=== PATIENT | female | born 1990 | race Caucasian/White ===

== ENCOUNTER 2018-03-24 10:16 | Inpatient (IN) | payer MEDICAID, OTHER ==
[2018-03-24 10:26] VITALS: BMI 18.8
[2018-03-24] MEDS ORDERED: Sodium Chloride 0.9% 1,000 ML IV STA ×3 (10:42→14:07)
[2018-03-24] MEDS ORDERED: Famotidine 20mg/50ml 20 MG/50 ML BAG IVPB ONE ×2 (11:00→11:35)
[2018-03-24 11:03] LABS: VENOUS BLOOD GAS BASE EXCESS -9.4 mmol/L (0.0-2.0); VENOUS BLOOD GAS PCO2 31 mmHg (40-60); VENOUS BLOOD GAS PO2 26 mm/Hg (30-55); VENOUS BLOOD PH 7.31 (7.32-7.43)
[2018-03-24 11:08] LABS: BASO # 0.1 K/uL (0.0-0.2); BASO % 0.3 % (0.0-2.0); HEMOGLOBIN 13.2 g/dL (12.0-16.0); LYMPH # 1.2 K/uL (1.0-4.3); LYMPH % 7.3 % (20.0-40.0); MEAN CELL VOLUME 91.1 fl (81.0-99.0); MEAN CORPUSCULAR HEMOGLOBIN 30.2 pg (27.0-31.0); MEAN CORPUSCULAR HGB CONC 33.2 g/dL (33.0-37.0); MONO # 0.4 K/uL (0.0-0.8); MONO % 2.6 % (0.0-10.0); NEUT # 15.1 K/uL (1.8-7.0); NEUT % 89.8 % (50.0-75.0); PLATELET COUNT 374 K/uL (130-400); RBC 4.36 Mil/uL (3.80-5.20); RED CELL DISTRIBUTION WIDTH 13.3 % (11.5-14.5); WHITE BLOOD COUNT 16.8 K/uL (4.8-10.8)
--- NOTE | 2018-03-24 11:08 | ED PDOC ---
HPI: Abdomen Time Seen by Provider: 03/24/18 10:30 Chief Complaint (Nursing): GI Problem Chief Complaint (Provider): vomiting History Per: Patient (27 y/o female Insulin dependent diabetic with intermittent vomiting x 2 weeks. Notes abdominal pain moderate. Denies any fevers/chills/dysuria. Has been admitted to [facility] x 1 week and has had 3 additional ED visits. Takes novolog at home.) Past Medical History Reviewed: Historical Data, Nursing Documentation, Vital Signs Vital Signs: Last Vital Signs Temp 98.6 F 03/24/18 10:24 Pulse 83 03/24/18 14:03 Resp 17 03/24/18 14:03 BP 135/77 03/24/18 14:03 Pulse Ox 99 03/24/18 14:03 - Medical History PMH: Diabetes (type I), Hypercholesterolemia, Hyperlipidemia Denies: Chronic Kidney Disease - Family History Family History: States: Unknown Family Hx - Home Medications Home Medications: Ambulatory Orders Medication Instructions Recorded Insulin Aspart [Novolog] 10 unit SQ DAILY 12/16/15 - Allergies Allergies/Adverse Reactions: Allergies Allergy/AdvReac Type Severity Reaction Status Date / Time No Known Allergies Allergy Verified 03/24/18 10:30 Review of Systems ROS Statement: Except As Marked, All Systems Reviewed And Found Negative Physical Exam - Reviewed Nursing Documentation Reviewed: Yes Vital Signs Reviewed: Yes - Physical Exam Appears: Positive for: Well, Non-toxic, No Acute Distress Head Exam: Positive for: ATRAUMATIC, NORMAL INSPECTION, NORMOCEPHALIC Skin: Positive for: Normal Color, Warm, DRY Eye Exam: Positive for: EOMI, Normal appearance, PERRL ENT: Positive for: Normal ENT Inspection Neck: Positive for: Normal, Painless ROM Cardiovascular/Chest: Positive for: Regular Rate, Rhythm Respiratory: Positive for: CNT, Normal Breath Sounds Gastrointestinal/Abdominal: Positive for: Normal Exam, Soft, Tenderness ( epigastric tenderness) Back: Positive for: Normal Inspection Extremity: Positive for: Normal ROM Neurologic/Psych: Positive for: Alert, Oriented - Laboratory Results Result Diagrams: 03/24/18 10:50 03/24/18 10:50 - ECG O2 Sat by Pulse Oximetry: 100 - Progress ED Course And Treament: NS 2 liters wide open EKG:NSR 95bpm; no ectopy no acute changes PEPCID 20 MG IV REGLAN 10 MG IV INSULIN DRIP 7 UNITS/HR ORDERED BETA QUANT NOTED ELEVATED. D/W PATIENT. PATIENT STATES SHE DOES NOT WANT INFO DISCLOSED TO MOTHER WHO HAS ACCOMPANIED HER AND DID NOT DISCLOSE INITIALLY. D/W DR. CASTRO. D/W DR. RDZ. Disposition - Clinical Impression Clinical Impression: Hyperemesis, DKA (diabetic ketoacidoses) - Patient ED Disposition Is Patient to be Admitted: Yes - Disposition Disposition Time: 12:59 Condition: FAIR - Pt Status Changed To: Hospital Disposition Of: Inpatient - Admit Certification Admit to Inpatient:: After my assessment, the patient will require hospitalization for at least two midnights. This is because of the severity of symptoms shown, intensity of services needed, and/or the medical risk in this patient being treated as an outpatient.
[2018-03-24 11:23] LABS: ALB/GLOB RATIO 1.2 (1.0-2.1); ALBUMIN 4.6 g/dL (3.5-5.0); ALT/SGPT 10 U/L (9-52); AST/SGOT 15 U/L (14-36); BLOOD UREA NITROGEN 13 mg/dl (7-17); CALCIUM 10.2 mg/dL (8.4-10.2); GFR AFRICAN-AMERICAN > 60; GFR NON-AFRICAN AMERICAN > 60; LIPASE 59 U/L (23-300)
[2018-03-24] MEDS ORDERED: Dextrose 50% SYRINGE Inj (50 ml) IV PRN ×2 (11:27→15:10)
[2018-03-24] MEDS ORDERED: Glucagon Recombinant 1 mg Inj IM PRN ×2 (11:27→15:10)
[2018-03-24 13:15] LABS: BANDS 4 % (0-2); LYMPHOCYTE 7 % (20-50); MONOCYTE 2 % (0-10); NEUTROPHIL 87 % (42-75); PLATELET ESTIMATE NORMAL (NORMAL); TOTAL CELLS COUNTED 100
[2018-03-24] MEDS ORDERED: Sodium Chloride 0.9% 1,000 ML IV SCH (14:00)
--- NOTE | 2018-03-24 14:28 | CP.PCM.CON ---
<Derick Fisher - Last Filed: 03/24/18 15:19> History of Present Illness - History of Present Illness History of Present Illness: Critical care consult note Hx taken from patient, patient;s mother and medical records 27 y/o F with PMHx of IDDM since she was 14 y/o, on NPH and Lispro, presented to ED c/o persistent vomiting and abd pain for 2 weeks. As per mother, patient was admitted about 2 weeks ago to [facility] for 1 week and treated with similar complains. She was DC home with same dose of insulin that patient was using and with a PO medication that they dont recall the name. Patient improved but has had persistent hypersalivation and episodes of vomiting since then and now is complaining of sore throat and epigastric pain. As per mother the patient used to live in [place] until 5-6 M/A when she moved with her because her sugar were not well controlled and the patient has a daughter that is 3 y/a. Denies any other significant PMhx other than 5 y/a patient was admitted to [facility] for "dental abscess" had respiratory distress and had to be intubated, trach done and patient transferred out to [facility] for further ENT management. On ED patient was found to have a venous blood Ph of 7.31, carbon dioxide 14, VS stable, WBC 16 and BHCG >[id number] Patient was started on insulin drip and given 2 L of IV fluids. Review of Systems - Review of Systems All systems: reviewed and no additional remarkable complaints except (Those described on HPI) Past Patient History - Past Medical History & Family History Past Medical History?: Yes - Past Social History Smoking Status: Never Smoked Drugs: Denies - CARDIAC Hx Hypercholesterolemia: Yes - PULMONARY Hx Respiratory Disorders: No - NEUROLOGICAL Hx Neurological Disorder: No - HEENT Hx HEENT Problems: No - RENAL Hx Chronic Kidney Disease: No - ENDOCRINE/METABOLIC Hx Endocrine Disorders: Yes (DM I) - HEMATOLOGICAL/ONCOLOGICAL Hx Blood Disorders: No - INTEGUMENTARY Hx Dermatological Problems: No - MUSCULOSKELETAL/RHEUMATOLOGICAL Hx Musculoskeletal Disorders: No Hx Falls: No - GASTROINTESTINAL Hx Gastrointestinal Disorders: No Hx Vomiting: Yes - PSYCHIATRIC Hx Psychophysiologic Disorder: No Hx Substance Use: No - SURGICAL HISTORY Hx Surgeries: Yes Other/Comment: Tracheostomy - ANESTHESIA Hx Anesthesia: Yes Hx Anesthesia Reactions: No Hx Malignant Hyperthermia: No Meds Allergies/Adverse Reactions: Allergies Allergy/AdvReac Type Severity Reaction Status Date / Time No Known Allergies Allergy Verified 03/24/18 10:30 - Medications Medications: Current Medications Dextrose (Dextrose 50% Inj) 0 ml IV STAT PRN; Protocol PRN Reason: Hypoglycemia Protocol Dextrose (Glutose 15) 0 gm PO ONCE PRN; Protocol PRN Reason: Hypoglycemia Protocol Enoxaparin Sodium (Lovenox) 40 mg SC DAILY DOMENIC PRN Reason: Protocol Glucagon (Glucagen Diagnostic Kit) 0 mg IM STAT PRN; Protocol PRN Reason: Hypoglycemia Protocol Insulin Human Regular 100 (units/ Sodium Chloride) 101 mls @ 7.07 mls/hr IV .[id number] DOMENIC PRN Reason: 7 UNITS/HR Last Admin: 03/24/18 14:03 Dose: 7.07 mls/hr Sodium Chloride (Sodium Chloride 0.9%) 1,000 mls @ 250 mls/hr IV .Q4H DOMENIC Sodium Chloride (Sodium Chloride 0.9%) 1,000 mls @ 500 mls/hr IV .Q2H STA Stop: 03/24/18 16:06 Last Admin: 03/24/18 14:09 Dose: 500 mls/hr Physical Exam - Constitutional Appears: Non-toxic, Confused (Slightly) - Head Exam Head Exam: ATRAUMATIC, NORMAL INSPECTION - Eye Exam Eye Exam: EOMI, PERRL - ENT Exam ENT Exam: Mucous Membranes Dry (Mild) - Neck Exam Neck exam: Positive for: Normal Inspection. Negative for: Lymphadenopathy - Respiratory Exam Respiratory Exam: Clear to Auscultation Bilateral, NORMAL BREATHING PATTERN. absent: Decreased Breath Sounds, Rales, Rhonchi, Wheezes, Respiratory Distress - Cardiovascular Exam Cardiovascular Exam: REGULAR RHYTHM, +S1, +S2. absent: Gallop, Systolic Murmur - GI/Abdominal Exam GI & Abdominal Exam: Normal Bowel Sounds, Soft, Tenderness (Diffuse, mild). absent: Distended, Guarding, Rebound, Rigid - Extremities Exam Extremities exam: Negative for: joint swelling, pedal edema, tenderness - Back Exam Back exam: absent: CVA tenderness (L), CVA tenderness (R) - Neurological Exam Neurological exam: Alert, Altered (Confused), Reflexes Normal - Skin Skin Exam: Normal Color, Warm Results - Vital Signs Recent Vital Signs: Last Vital Signs Temp 98.6 F 03/24/18 10:24 Pulse 83 03/24/18 14:03 Resp 17 03/24/18 14:03 BP 135/77 03/24/18 14:03 Pulse Ox 99 03/24/18 14:03 - Labs Result Diagrams: 03/24/18 10:50 03/24/18 10:50 Labs: Laboratory Results - last 24 hr 03/24/18 03/24/18 03/24/18 10:34 10:50 10:50 WBC 16.8 H RBC 4.36 Hgb 13.2 Hct 39.7 MCV 91.1 MCH 30.2 MCHC 33.2 RDW 13.3 Plt Count 374 MPV 9.0 Neut % (Auto) 89.8 H Lymph % (Auto) 7.3 L [place] % (Auto) 2.6 Eos % (Auto) 0.0 Baso % (Auto) 0.3 Neut # (Auto) 15.1 H Lymph # (Auto) 1.2 [place] # (Auto) 0.4 Eos # (Auto) 0.0 Baso # (Auto) 0.1 Neutrophils % (Manual) 87 H Band Neutrophils % 4 H Lymphocytes % (Manual) 7 L Monocytes % (Manual) 2 Platelet Estimate Normal RBC Morphology Normal pO2 VBG pH VBG pCO2 VBG HCO3 VBG Total CO2 VBG O2 Sat (Calc) VBG Base Excess VBG Potassium Glucose Lactate FiO2 Sodium 138 Potassium 4.4 Chloride 101 Carbon Dioxide 14 L Anion Gap 27 H BUN 13 Creatinine 0.4 L Est GFR ( Amer) > 60 Est GFR (Non-Af Amer) > 60 POC Glucose (mg/dL) 251 H Random Glucose 300 H Calcium 10.2 Magnesium Total Bilirubin 2.0 H AST 15 ALT 10 Alkaline Phosphatase 63 Troponin I Total Protein 8.6 H Albumin 4.6 Globulin 4.0 H Albumin/Globulin Ratio 1.2 Lipase 59 Beta HCG, Quant Venous Blood Potassium 03/24/18 03/24/18 03/24/18 10:54 11:11 13:40 WBC RBC Hgb Hct MCV MCH MCHC RDW Plt Count MPV Neut % (Auto) Lymph % (Auto) [place] % (Auto) Eos % (Auto) Baso % (Auto) Neut # (Auto) Lymph # (Auto) [place] # (Auto) Eos # (Auto) Baso # (Auto) Neutrophils % (Manual) Band Neutrophils % Lymphocytes % (Manual) Monocytes % (Manual) Platelet Estimate RBC Morphology pO2 26 L VBG pH 7.31 L VBG pCO2 31 L VBG HCO3 16.1 VBG Total CO2 16.6 L VBG O2 Sat (Calc) 54.0 VBG Base Excess -9.4 L VBG Potassium 4.1 Glucose 318 H Lactate 1.9 FiO2 21.0 Sodium 135.0 Potassium Chloride 100.0 Carbon Dioxide Anion Gap BUN Creatinine Est GFR ( Amer) Est GFR (Non-Af Amer) POC Glucose (mg/dL) 233 H Random Glucose Calcium Magnesium 1.9 Total Bilirubin AST ALT Alkaline Phosphatase Troponin I < 0.0120 Total Protein Albumin Globulin Albumin/Globulin Ratio Lipase Beta HCG, Quant 066175.00 Venous Blood Potassium 4.1 Assessment & Plan - Assessment and Plan (Free Text) Assessment: 27 y/o F with PMHx of IDDM admitted for suspected DKA and hyperemesis gravidarum DKA Suspected Acute Ph= 7.31, carbon dioxide 14, BS 300, Lactate 1.9, VS stable. BUN/Creat unremarkable Hx of uncontrolled IDDM Last accucheck 233. Switch IV fluids to d5/0.45NS at 175mls/hr Repeat accucheck 15:00 213. C/w Insulin drip at 7 and titrate as per protocol for now. Pending betahydroxybutirate, if negative unlikely DKA and insulin drip can be stopped Repeat BMP at 3pm to monitor K and add KCL as needed Neuro checks q2h Hyperemesis gravidarum BHCG at ED >[id number] Patient dosnt recall LMP with Hx of hyperemesis gravidarum on previous Vomiting for 2 week C/W IV fluids Consider OB consult Supportive measures Leukocytosis R/O infectious process Lactate WNL, Afebrile F/U UA, UCx DVT prophylaxis Recommend SDCs for now <Bonifacio Ayala - Last Filed: 03/24/18 18:12> History of Present Illness - History of Present Illness History of Present Illness: Attestation: Patient seen and examined at the bedside with Resident Dr. Renetta Fisher; and I agree with his outline of plans and management documented below as discussed; reflecting my review of all applicable clinical data, and participation in the care of the patient throughout the day in ICU; today, March 24, 2018. Results - Labs Result Diagrams: 03/24/18 10:50 03/24/18 17:06
[2018-03-24 14:44] LABS: SQUAMOUS EPITHIAL 1 /hpf (0-5); URINE BILIRUBIN NEGATIVE (NEGATIVE); URINE BLOOD NEGATIVE (NEGATIVE); URINE CLARITY CLEAR (Clear); URINE COLOR STRAW (YELLOW); URINE GLUCOSE (UA) >=500 mg/dL (Normal); URINE LEUKOCYTE ESTERASE NEG Leu/uL (Negative); URINE PROTEIN 30 mg/dL (NEGATIVE); URINE UROBILINOGEN 0.2-1.0 mg/dL (0.2-1.0)
--- NOTE | 2018-03-24 15:23 | CP.PCM.HP ---
History of Present Illness - History of Present Illness History of Present Illness: 27 yo female with history of DM1 since 14 yo has been vomiting on and off since 3 weeks ago. Condition was also associated with abdominal pain probably from excessive vomiting. She was admitted at [facility] for one week about 2- 3 weeks ago and sent home with the same dose of insulin. Since then, she has been seen at least 3 times at [facility] ER for the same complaint. She was treated with IV hydration plus insulin then sent home for these visits. Last visit was 2 days ago. Getting no improvement at [facility] patient was brought here by mother with the same complaint. In the ER, serum Beta HCG was [id number]. Patient did not want her mother to know that she is . Present on Admission - Present on Admission Any Indicators Present on Admission: No History of DVT/PE: No History of Uncontrolled Diabetes: No Urinary Catheter: No Decubitus Ulcer Present: No Review of Systems - Review of Systems All systems: reviewed and no additional remarkable complaints except (aside from those mentioned above, 12 point system review were negative by me) Past Patient History - Tetanus Immunizations Tetanus Immunization: Unknown - Past Medical History & Family History Past Medical History?: Yes - Past Social History Smoking Status: Never Smoked Chewing Tobacco Use: No Cigar Use: No Alcohol: None Drugs: Denies - CARDIAC Hx Hypercholesterolemia: Yes - PULMONARY Hx Respiratory Disorders: No - NEUROLOGICAL Hx Neurological Disorder: No - HEENT Hx HEENT Problems: No - RENAL Hx Chronic Kidney Disease: No - ENDOCRINE/METABOLIC Hx Endocrine Disorders: Yes (DM I) - HEMATOLOGICAL/ONCOLOGICAL Hx Blood Disorders: No - INTEGUMENTARY Hx Dermatological Problems: No - MUSCULOSKELETAL/RHEUMATOLOGICAL Hx Musculoskeletal Disorders: No Hx Falls: No - GASTROINTESTINAL Hx Gastrointestinal Disorders: No Hx Vomiting: Yes - PSYCHIATRIC Hx Psychophysiologic Disorder: No Hx Substance Use: No - SURGICAL HISTORY Hx Surgeries: Yes Other/Comment: Tracheostomy - ANESTHESIA Hx Anesthesia: Yes Hx Anesthesia Reactions: No Hx Malignant Hyperthermia: No Meds Allergies/Adverse Reactions: Allergies Allergy/AdvReac Type Severity Reaction Status Date / Time No Known Allergies Allergy Verified 03/24/18 10:30 Physical Exam - Constitutional Appears: No Acute Distress - Head Exam Head Exam: ATRAUMATIC - Eye Exam Eye Exam: absent: Scleral icterus - ENT Exam ENT Exam: Mucous Membranes Moist - Neck Exam Neck exam: Negative for: Meningismus - Respiratory Exam Respiratory Exam: absent: Rales, Rhonchi, Wheezes, Respiratory Distress - Cardiovascular Exam Cardiovascular Exam: REGULAR RHYTHM, +S1, +S2 - GI/Abdominal Exam GI & Abdominal Exam: Soft. absent: Tenderness - Rectal Exam Rectal Exam: Deferred - Extremities Exam Extremities exam: Negative for: calf tenderness, pedal edema - Back Exam Back exam: absent: tenderness - Neurological Exam Neurological exam: Alert, Oriented x3 - Psychiatric Exam Psychiatric exam: Normal Affect - Skin Skin Exam: Dry, Intact Results - Vital Signs Recent Vital Signs: Last Vital Signs Temp 98.6 F 03/24/18 10:24 Pulse 83 03/24/18 14:03 Resp 17 03/24/18 14:03 BP 135/77 03/24/18 14:03 Pulse Ox 99 03/24/18 14:03 - Labs Result Diagrams: 03/24/18 10:50 03/24/18 10:50 Labs: Laboratory Results - last 24 hr 03/24/18 03/24/18 03/24/18 10:34 10:50 10:50 WBC 16.8 H RBC 4.36 Hgb 13.2 Hct 39.7 MCV 91.1 MCH 30.2 MCHC 33.2 RDW 13.3 Plt Count 374 MPV 9.0 Neut % (Auto) 89.8 H Lymph % (Auto) 7.3 L [place] % (Auto) 2.6 Eos % (Auto) 0.0 Baso % (Auto) 0.3 Neut # (Auto) 15.1 H Lymph # (Auto) 1.2 [place] # (Auto) 0.4 Eos # (Auto) 0.0 Baso # (Auto) 0.1 Neutrophils % (Manual) 87 H Band Neutrophils % 4 H Lymphocytes % (Manual) 7 L Monocytes % (Manual) 2 Platelet Estimate Normal RBC Morphology Normal pO2 VBG pH VBG pCO2 VBG HCO3 VBG Total CO2 VBG O2 Sat (Calc) VBG Base Excess VBG Potassium Glucose Lactate FiO2 Sodium 138 Potassium 4.4 Chloride 101 Carbon Dioxide 14 L Anion Gap 27 H BUN 13 Creatinine 0.4 L Est GFR ( Amer) > 60 Est GFR (Non-Af Amer) > 60 POC Glucose (mg/dL) 251 H Random Glucose 300 H Calcium 10.2 Magnesium Total Bilirubin 2.0 H AST 15 ALT 10 Alkaline Phosphatase 63 Troponin I Total Protein 8.6 H Albumin 4.6 Globulin 4.0 H Albumin/Globulin Ratio 1.2 Lipase 59 Beta HCG, Quant Venous Blood Potassium Urine Color Urine Clarity Urine pH Ur Specific [place] Urine Protein Urine Glucose (UA) Urine Ketones Urine Blood Urine Nitrate Urine Bilirubin Urine Urobilinogen Ur Leukocyte Esterase Urine RBC (Auto) Urine Microscopic WBC Ur Squamous Epith Cells 03/24/18 03/24/18 03/24/18 10:54 11:11 13:40 WBC RBC Hgb Hct MCV MCH MCHC RDW Plt Count MPV Neut % (Auto) Lymph % (Auto) [place] % (Auto) Eos % (Auto) Baso % (Auto) Neut # (Auto) Lymph # (Auto) [place] # (Auto) Eos # (Auto) Baso # (Auto) Neutrophils % (Manual) Band Neutrophils % Lymphocytes % (Manual) Monocytes % (Manual) Platelet Estimate RBC Morphology pO2 26 L VBG pH 7.31 L VBG pCO2 31 L VBG HCO3 16.1 VBG Total CO2 16.6 L VBG O2 Sat (Calc) 54.0 VBG Base Excess -9.4 L VBG Potassium 4.1 Glucose 318 H Lactate 1.9 FiO2 21.0 Sodium 135.0 Potassium Chloride 100.0 Carbon Dioxide Anion Gap BUN Creatinine Est GFR ( Amer) Est GFR (Non-Af Amer) POC Glucose (mg/dL) 233 H Random Glucose Calcium Magnesium 1.9 Total Bilirubin AST ALT Alkaline Phosphatase Troponin I < 0.0120 Total Protein Albumin Globulin Albumin/Globulin Ratio Lipase Beta HCG, Quant 129592.00 Venous Blood Potassium 4.1 Urine Color Urine Clarity Urine pH Ur Specific [place] Urine Protein Urine Glucose (UA) Urine Ketones Urine Blood Urine Nitrate Urine Bilirubin Urine Urobilinogen Ur Leukocyte Esterase Urine RBC (Auto) Urine Microscopic WBC Ur Squamous Epith Cells 03/24/18 03/24/18 14:17 15:05 WBC RBC Hgb Hct MCV MCH MCHC RDW Plt Count MPV Neut % (Auto) Lymph % (Auto) [place] % (Auto) Eos % (Auto) Baso % (Auto) Neut # (Auto) Lymph # (Auto) [place] # (Auto) Eos # (Auto) Baso # (Auto) Neutrophils % (Manual) Band Neutrophils % Lymphocytes % (Manual) Monocytes % (Manual) Platelet Estimate RBC Morphology pO2 VBG pH VBG pCO2 VBG HCO3 VBG Total CO2 VBG O2 Sat (Calc) VBG Base Excess VBG Potassium Glucose Lactate FiO2 Sodium Potassium Chloride Carbon Dioxide Anion Gap BUN Creatinine Est GFR ( Amer) Est GFR (Non-Af Amer) POC Glucose (mg/dL) 213 H Random Glucose Calcium Magnesium Total Bilirubin AST ALT Alkaline Phosphatase Troponin I Total Protein Albumin Globulin Albumin/Globulin Ratio Lipase Beta HCG, Quant Venous Blood Potassium Urine Color Straw Urine Clarity Clear Urine pH 6.0 Ur Specific [place] 1.030 Urine Protein 30 Urine Glucose (UA) >=500 Urine Ketones 80 Urine Blood Negative Urine Nitrate Negative Urine Bilirubin Negative Urine Urobilinogen 0.2-1.0 Ur Leukocyte Esterase Neg Urine RBC (Auto) 1 Urine Microscopic WBC 1 Ur Squamous Epith Cells 1 Assessment & Plan - Assessment and Plan (Free Text) Assessment: 27 yo female with history of DM1 since 14 yo has been vomiting on and off since 3 weeks ago. Condition was also associated with abdominal pain probably from excessive vomiting. She was admitted at [facility] for one week about 2- 3 weeks ago and sent home with the same dose of insulin. Since then, she has been seen at least 3 times at [facility] ER for the same complaint. She was treated with IV hydration plus insulin then sent home for these visits. Last visit was 2 days ago. Getting no improvement at [facility] patient was brought here by mother with the same complaint. In the ER, serum Beta HCG was [id number]. Patient did not want her mother to know that she is . 1. DKA admit to ICU continue insulin drip until CO2 is above 18 continue vigorous IV hydration with NSS at 250cc/hr endocrinology consult with Dr Cheung (she is aware) 2. Hyperemesis Gravidarum vomiting probably related to compensation and benefits manager consult with Dr العراقي
[2018-03-24] MEDS: Dextrose 5%/0.45% NS 1,000 ML IV SCH ×2 (17:01→22:58)
[2018-03-24 17:56] LABS: BLOOD UREA NITROGEN 11 mg/dl (7-17); CALCIUM 7.7 mg/dL (8.4-10.2); GFR AFRICAN-AMERICAN > 60; GFR NON-AFRICAN AMERICAN > 60
--- NOTE | 2018-03-24 23:07 | CON ---
ENDOCRINOLOGY CONSULT DATE: LOCATION: In ER holding, transferred now to ICU, room 427. HISTORY OF PRESENT ILLNESS: This is a 27-year-old female with known history of type 1 insulin-dependent diabetes admitted here with intractable nausea, dyspepsia, vomiting, and diffuse abdominal pain and was found to be in diabetic ketoacidosis with concomitant surprise finding of unintentional for which she wants to keep confidential and private at this point in time to hold any information told to her mother. PAST MEDICAL HISTORY: As mentioned above, history of type 1 insulin-dependent diabetes diagnosed since age 14 and has been using only NovoLog insulin at a variable dose two to three times a day. No recent glucose monitoring levels are available at this time. FAMILY HISTORY: Positive for diabetes and hypertension. SOCIAL HISTORY: The patient has a supportive family. No known substance use. REVIEW OF SYSTEMS: As mentioned above. Admits to generalized body weakness with easy fatigability and tiredness and suboptimal energy level. No chest pains or palpitations or PND. Her oral intake has been variable with in fact almost nil oral intake in the last 48 hours because of intractable nausea, dyspepsia, and vomiting episodes. Also admits to upper and lower abdominal pain worse in the last week or so prior to admission. No chest pains, palpitations, or PND. PHYSICAL EXAMINATION: GENERAL: This is an average built female in no apparent distress. VITAL SIGNS: Blood pressure of 140/80, pulse of 70 beats per minute and regular, temperature 98, respirations 20, height is 5 feet 3 inches, and weight is 160 pounds. HEENT: Head is normocephalic. Eyes; anicteric with pink conjunctivae. Funduscopy not possible at this time. Ears, nose, and throat otherwise normal. NECK: Supple. Thyroid gland is normal in size. No carotid bruits or cervical adenopathy. CARDIOPULMONARY: Some adynamic precordium. S1 and S2 is rapid and regular. LUNGS: Clear to auscultation. ABDOMEN: Flat and soft with positive bowel sounds. EXTREMITIES: No peripheral edema. Pulses are +2 bilaterally. LABORATORY DATA: Initial chemistry showed a BUN of 13, sodium 138, potassium 4.4, chloride 101, CO2 of 14, glucose 300, and creatinine 0.4. Her beta hCG is . ASSESSMENT: This is a 27-year-old female with uncontrolled and decompensated type 1 insulin-dependent diabetes presenting here with intractable nausea, dyspepsia, and vomiting and has concomitant incidental finding of positive test and is now being referred for diabetic evaluation and management. PLAN OF MANAGEMENT: We will continue the vigorous IV hydration is the most essential point at this time and continue the intensive insulin infusion with an insulin drip based on the algorithm one DKA protocol as expected to be done. As her oral intake improves and also has acidosis resolves with at least CO2 above 18, then we can switch her over to a more physiologic basal and bolus insulin drug combination as indicated. We will obtain a hemoglobin A1c to confirm her prior glycemic control and baseline thyroid function studies will be ordered. We will obtain serial chemistries and supplement accordingly as needed. We will follow. Vera Cheung MD
--- NOTE | 2018-03-24 23:15 | CP.PCM.CON ---
History of Present Illness - History of Present Illness History of Present Illness: 27 yo F EGA 9.1 wks with pmh of IDDM admitted for DKA and hyperemesis gravidarum. For the past two weeks, she reports epigastric abdominal pain and vomiting. Abdominal pain is localized and intermittent. She denies recent trauma. Vomiting has been NBNB episodes described as spitting up clear mucous. Pt has been taking Reglan and Zofran but has not significantly alleviated her symptoms. Denies recent illness or fevers. She denies: VB, CTX, LOF, FM ROS: Reports: dizziness, slight frontal headaches, nausea and vomiting; Denies: change in vision, CP/SOB, dysuria Of Note: she was recently seen at [place] for similar symptoms. She reports being prescribed a medication (unknown), however, she did not fill the script due to cost. 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 Menstrual cycles are regular, monthly and started at age 14. care: none due to unknown ObHx: 2014 M born at 36 weeks via vaginal delivery: complicated with hyperemesis gravidarum. Rx: Reglan and Zofran. Pmhx: IDDM dx at 14 years of age; Admitted in 2016: dental abscess, which progressed to respiratory distress leading to intubation via trachea at [facility] Famhx: HTN Soc: lives with mom; Denies: smoking, alcohol, illicit drugs Surg: tracheotomy 2016 NKDA Meds: NPH, lispro Physical exam: Gen: AAOx3, lethargy Cardiac: S1S2, no murmurs Respiratory: Clear to auscultation bilaterally Abdomen: soft, nontender, fundus of uterus not palpable CVA: negative for tenderness No calf tenderness 27 yo F EGA 9.1 wks presents with DKA and hyperemesis gravidarum. -US reviewed: EGA 9.1 wks -Consulted Dr. Pantoja: recommended discontinue Reglan and replace with Phenergan or Compazine; Can be treated as routine matter similar to non patients; Management not altered. -SW consulted: personal compliance with self care -Of note: pt repeatedly reported desire to not keep this -Encouraged patient to seek OB care as outpatient in the future to further discuss options -f/u: HBA1C Case d/w Dr. Dulce Maria Hudson MD PGY1 Past Patient History - Tetanus Immunizations Tetanus Immunization: Unknown - Past Medical History & Family History Past Medical History?: Yes - Past Social History Smoking Status: Never Smoked - CARDIAC Hx Cardiac Disorders: Yes Hx Hypercholesterolemia: Yes - PULMONARY Hx Respiratory Disorders: No - NEUROLOGICAL Hx Neurological Disorder: No - HEENT Hx HEENT Problems: No - RENAL Hx Chronic Kidney Disease: No - ENDOCRINE/METABOLIC Hx Endocrine Disorders: Yes Hx Diabetes Mellitus Type 2: Yes - HEMATOLOGICAL/ONCOLOGICAL Hx Blood Disorders: No - INTEGUMENTARY Hx Dermatological Problems: No - MUSCULOSKELETAL/RHEUMATOLOGICAL Hx Musculoskeletal Disorders: No Hx Falls: No - GASTROINTESTINAL Hx Gastrointestinal Disorders: No Hx Vomiting: Yes - PSYCHIATRIC Hx Psychophysiologic Disorder: No Hx Substance Use: No - SURGICAL HISTORY Hx Surgeries: Yes Hx Section: Yes Other/Comment: Tracheostomy. has infected absess in mouth which caused sepsis and intubation - ANESTHESIA Hx Anesthesia: Yes Hx Anesthesia Reactions: No Hx Malignant Hyperthermia: No Meds Allergies/Adverse Reactions: Allergies Allergy/AdvReac Type Severity Reaction Status Date / Time No Known Allergies Allergy Verified 03/24/18 10:30 - Medications Medications: Current Medications Dextrose (Dextrose 50% Inj) 0 ml IV STAT PRN; Protocol PRN Reason: Hypoglycemia Protocol Dextrose (Glutose 15) 0 gm PO ONCE PRN; Protocol PRN Reason: Hypoglycemia Protocol Dextrose (Dextrose 50% Inj) 0 ml IV STAT PRN; Protocol PRN Reason: Hypoglycemia Protocol Dextrose (Glutose 15) 0 gm PO ONCE PRN; Protocol PRN Reason: Hypoglycemia Protocol Enoxaparin Sodium (Lovenox) 40 mg SC DAILY DOMENIC PRN Reason: Protocol Glucagon (Glucagen Diagnostic Kit) 0 mg IM STAT PRN; Protocol PRN Reason: Hypoglycemia Protocol Glucagon (Glucagen Diagnostic Kit) 0 mg IM STAT PRN; Protocol PRN Reason: Hypoglycemia Protocol Dextrose/Sodium Chloride (Dextrose 5%/0.45% Ns 1000 Ml) 1,000 mls @ 175 mls/hr IV .[id number] DOMENIC Stop: 03/25/18 14:46 Last Admin: 03/24/18 17:01 Dose: 175 mls/hr Insulin Human Regular 100 (units/ Sodium Chloride) 101 mls @ 7.07 mls/hr IV .[id number] DOMENIC; 7 UNITS/HR PRN Reason: Protocol Promethazine HCl 25 mg/ Sodium (Chloride) 51 mls @ 102 mls/hr IVPB Q4H DOMENIC Results - Vital Signs Recent Vital Signs: Last Vital Signs Temp 98 F 03/24/18 17:45 Pulse 95 H 03/24/18 19:00 Resp 17 03/24/18 19:00 BP 144/82 03/24/18 18:42 Pulse Ox 100 03/24/18 18:42 - Labs Result Diagrams: 03/24/18 10:50 03/24/18 17:06 Labs: Laboratory Results - last 24 hr 03/24/18 03/24/18 03/24/18 10:34 10:50 10:50 WBC 16.8 H RBC 4.36 Hgb 13.2 Hct 39.7 MCV 91.1 MCH 30.2 MCHC 33.2 RDW 13.3 Plt Count 374 MPV 9.0 Neut % (Auto) 89.8 H Lymph % (Auto) 7.3 L Orange % (Auto) 2.6 Eos % (Auto) 0.0 Baso % (Auto) 0.3 Neut # (Auto) 15.1 H Lymph # (Auto) 1.2 Orange # (Auto) 0.4 Eos # (Auto) 0.0 Baso # (Auto) 0.1 Neutrophils % (Manual) 87 H Band Neutrophils % 4 H Lymphocytes % (Manual) 7 L Monocytes % (Manual) 2 Platelet Estimate Normal RBC Morphology Normal pO2 VBG pH VBG pCO2 VBG HCO3 VBG Total CO2 VBG O2 Sat (Calc) VBG Base Excess VBG Potassium Glucose Lactate FiO2 Sodium 138 Potassium 4.4 Chloride 101 Carbon Dioxide 14 L Anion Gap 27 H BUN 13 Creatinine 0.4 L Est GFR ( Amer) > 60 Est GFR (Non-Af Amer) > 60 POC Glucose (mg/dL) 251 H Random Glucose 300 H Calcium 10.2 Magnesium Total Bilirubin 2.0 H AST 15 ALT 10 Alkaline Phosphatase 63 Troponin I Total Protein 8.6 H Albumin 4.6 Globulin 4.0 H Albumin/Globulin Ratio 1.2 Lipase 59 Beta HCG, Quant Venous Blood Potassium Urine Color Urine Clarity Urine pH Ur Specific [place] Urine Protein Urine Glucose (UA) Urine Ketones Urine Blood Urine Nitrate Urine Bilirubin Urine Urobilinogen Ur Leukocyte Esterase Urine RBC (Auto) Urine Microscopic WBC Ur Squamous Epith Cells B-Hydroxybutyrate 03/24/18 03/24/18 03/24/18 10:54 11:11 13:40 WBC RBC Hgb Hct MCV MCH MCHC RDW Plt Count MPV Neut % (Auto) Lymph % (Auto) Orange % (Auto) Eos % (Auto) Baso % (Auto) Neut # (Auto) Lymph # (Auto) Orange # (Auto) Eos # (Auto) Baso # (Auto) Neutrophils % (Manual) Band Neutrophils % Lymphocytes % (Manual) Monocytes % (Manual) Platelet Estimate RBC Morphology pO2 26 L VBG pH 7.31 L VBG pCO2 31 L VBG HCO3 16.1 VBG Total CO2 16.6 L VBG O2 Sat (Calc) 54.0 VBG Base Excess -9.4 L VBG Potassium 4.1 Glucose 318 H Lactate 1.9 FiO2 21.0 Sodium 135.0 Potassium Chloride 100.0 Carbon Dioxide Anion Gap BUN Creatinine Est GFR ( Amer) Est GFR (Non-Af Amer) POC Glucose (mg/dL) 233 H Random Glucose Calcium Magnesium 1.9 Total Bilirubin AST ALT Alkaline Phosphatase Troponin I < 0.0120 Total Protein Albumin Globulin Albumin/Globulin Ratio Lipase Beta HCG, Quant 346842.00 Venous Blood Potassium 4.1 Urine Color Urine Clarity Urine pH Ur Specific [place] Urine Protein Urine Glucose (UA) Urine Ketones Urine Blood Urine Nitrate Urine Bilirubin Urine Urobilinogen Ur Leukocyte Esterase Urine RBC (Auto) Urine Microscopic WBC Ur Squamous Epith Cells B-Hydroxybutyrate 4.74 H 03/24/18 03/24/18 03/24/18 14:17 15:05 16:25 WBC RBC Hgb Hct MCV MCH MCHC RDW Plt Count MPV Neut % (Auto) Lymph % (Auto) Orange % (Auto) Eos % (Auto) Baso % (Auto) Neut # (Auto) Lymph # (Auto) Orange # (Auto) Eos # (Auto) Baso # (Auto) Neutrophils % (Manual) Band Neutrophils % Lymphocytes % (Manual) Monocytes % (Manual) Platelet Estimate RBC Morphology pO2 VBG pH VBG pCO2 VBG HCO3 VBG Total CO2 VBG O2 Sat (Calc) VBG Base Excess VBG Potassium Glucose Lactate FiO2 Sodium Potassium Chloride Carbon Dioxide Anion Gap BUN Creatinine Est GFR ( Amer) Est GFR (Non-Af Amer) POC Glucose (mg/dL) 213 H 244 H Random Glucose Calcium Magnesium Total Bilirubin AST ALT Alkaline Phosphatase Troponin I Total Protein Albumin Globulin Albumin/Globulin Ratio Lipase Beta HCG, Quant Venous Blood Potassium Urine Color Straw Urine Clarity Clear Urine pH 6.0 Ur Specific [place] 1.030 Urine Protein 30 Urine Glucose (UA) >=500 Urine Ketones 80 Urine Blood Negative Urine Nitrate Negative Urine Bilirubin Negative Urine Urobilinogen 0.2-1.0 Ur Leukocyte Esterase Neg Urine RBC (Auto) 1 Urine Microscopic WBC 1 Ur Squamous Epith Cells 1 B-Hydroxybutyrate 03/24/18 03/24/18 03/24/18 17:06 17:36 20:30 WBC RBC Hgb Hct MCV MCH MCHC RDW Plt Count MPV Neut % (Auto) Lymph % (Auto) Orange % (Auto) Eos % (Auto) Baso % (Auto) Neut # (Auto) Lymph # (Auto) Orange # (Auto) Eos # (Auto) Baso # (Auto) Neutrophils % (Manual) Band Neutrophils % Lymphocytes % (Manual) Monocytes % (Manual) Platelet Estimate RBC Morphology pO2 VBG pH VBG pCO2 VBG HCO3 VBG Total CO2 VBG O2 Sat (Calc) VBG Base Excess VBG Potassium Glucose Lactate FiO2 Sodium 138 Potassium 4.2 Chloride 110 H Carbon Dioxide 11 L* D Anion Gap 21 H BUN 11 Creatinine 0.4 L Est GFR ( Amer) > 60 Est GFR (Non-Af Amer) > 60 POC Glucose (mg/dL) 234 H 176 H Random Glucose 254 H Calcium 7.7 L Magnesium Total Bilirubin AST ALT Alkaline Phosphatase Troponin I Total Protein Albumin Globulin Albumin/Globulin Ratio Lipase Beta HCG, Quant Venous Blood Potassium Urine Color Urine Clarity Urine pH Ur Specific [place] Urine Protein Urine Glucose (UA) Urine Ketones Urine Blood Urine Nitrate Urine Bilirubin Urine Urobilinogen Ur Leukocyte Esterase Urine RBC (Auto) Urine Microscopic WBC Ur Squamous Epith Cells B-Hydroxybutyrate 03/24/18 03/24/18 21:17 22:40 WBC RBC Hgb Hct MCV MCH MCHC RDW Plt Count MPV Neut % (Auto) Lymph % (Auto) Orange % (Auto) Eos % (Auto) Baso % (Auto) Neut # (Auto) Lymph # (Auto) Orange # (Auto) Eos # (Auto) Baso # (Auto) Neutrophils % (Manual) Band Neutrophils % Lymphocytes % (Manual) Monocytes % (Manual) Platelet Estimate RBC Morphology pO2 VBG pH VBG pCO2 VBG HCO3 VBG Total CO2 VBG O2 Sat (Calc) VBG Base Excess VBG Potassium Glucose Lactate FiO2 Sodium Potassium Chloride Carbon Dioxide Anion Gap BUN Creatinine Est GFR ( Amer) Est GFR (Non-Af Amer) POC Glucose (mg/dL) 169 H 79 Random Glucose Calcium Magnesium Total Bilirubin AST ALT Alkaline Phosphatase Troponin I Total Protein Albumin Globulin Albumin/Globulin Ratio Lipase Beta HCG, Quant Venous Blood Potassium Urine Color Urine Clarity Urine pH Ur Specific [place] Urine Protein Urine Glucose (UA) Urine Ketones Urine Blood Urine Nitrate Urine Bilirubin Urine Urobilinogen Ur Leukocyte Esterase Urine RBC (Auto) Urine Microscopic WBC Ur Squamous Epith Cells B-Hydroxybutyrate
[2018-03-24] MEDS: Promethazine 25 MG in Sodium Chloride 0.9% 50 ML IVPB SCH (23:36)
[2018-03-25] MEDS: Dextrose 5%/0.45% NS 1,000 ML IV SCH (03:00)
[2018-03-25] MEDS: Promethazine 25 MG in Sodium Chloride 0.9% 50 ML IVPB SCH ×4 (03:58→14:30)
[2018-03-25] MEDS ORDERED: Dextrose 50% SYRINGE Inj (50 ml) IVP ONE (05:16)
[2018-03-25 05:52] LABS: MEAN CELL VOLUME 88.9 fl (81.0-99.0); MEAN CORPUSCULAR HEMOGLOBIN 30.2 pg (27.0-31.0); RBC 2.97 Mil/uL (3.80-5.20); RED CELL DISTRIBUTION WIDTH 13.1 % (11.5-14.5); WHITE BLOOD COUNT 13.1 K/uL (4.8-10.8)
[2018-03-25 06:33] LABS: ALBUMIN 2.9 g/dL (3.5-5.0); ALT/SGPT 15 U/L (9-52); AST/SGOT 12 U/L (14-36); BLOOD UREA NITROGEN 4 mg/dl (7-17); CALCIUM 7.9 mg/dL (8.4-10.2); GFR AFRICAN-AMERICAN > 60; GFR NON-AFRICAN AMERICAN > 60
--- NOTE | 2018-03-25 07:01 | CARD ---
APPROVED REPORT EKG Measurement Heart [id number] OK [id number] <Conclusion> Normal sinus rhythm Nonspecific T wave abnormality Abnormal ECG
[2018-03-25] MEDS: Acetaminophen 650mg/20.3ml solution UD PO PRN ×2 (07:24→13:39)
--- NOTE | 2018-03-25 07:40 | CP.CCUPN ---
CCU Subjective - Physician Review Subjective (Free Text): Awake and alert, no changes in mental status during lowering of glucose levels, had intermittent vomiting overnight and new onset crushing chest discomfort this AM, EKG showed minor nonspecific T inversions in V1-V2, no old EKGs for comparison. Denied any assoc SOB, radiation of pain, increased nausea, diaphoresis or palpitations. Other vitals and I/O's reviewed. No fever spikes. No Cope, Nursing reports urine output at approx. 450 ml. remains on OVFat 175ml/hr, and insulin drip at 1.5 units per hpur. Last BS level 117. ROS: No other pertinent negs or positives on 10+ system review. PMSFH: All other Nursing and physician documentation reviewed to date; no new pertinent info noted relevant to current medical problems. EXAM- HEENT: no icterus, no gaze preference, pupils equal and reactive NECK: No JVD, supple, carotids equal upstroke bilat/no bruits CHEST: decreased BS bases, otherwise clear bilat; no wheezes audible HEART: regular, tachy S1S2, no rubs or murmurs ABD: soft, no distention, no tympany, no palp tenderness, BS hypoactive EXT: No peripheral/ digital cyanosis, no calf tenderness or palpable cords, distal pulses intact and symmetrical. NEURO: no focal motor deficits. SKIN: no rashes, warm and dry. LABS: WBC= 13.1 HGB= 9.0 PLTs= 299K Wh=183 K= 3.0 DM=131 HCO3= 17 BUN/Cr= 4/0.3 BS= 96 IMPRESSION / MAJOR PROBLEMS NOW: 1. DKA (mild) 2. Hyperemesis Gravidarum 3. Gestational IUP, estd at approx. 9 weeks 4. Chronic Anemia PLAN: 1. Discuss with Industrial X Ray Operator; anion gap resolved, but serum bicarb levels remain low. Keep on Insulin drip and IVFs unless otherwise directed by Endo. 2. Supplement K, check Mag and Phos. 3. serial EKGs and Trops, consider ECHO. 4. Promethazine prn, IVFs for Hyperemesis. CCU Objective - Vital Signs / Intake & Output Vital Signs (Last 4 hours): Vital Signs Temp Pulse Resp BP Pulse Ox 03/25/18 06:00 106 H 17 126/72 100 03/25/18 04:00 98.3 F 90 12 135/84 100 Intake and Output (Last 8hrs): Intake & Output 03/24/18 03/25/18 03/25/18 22:59 06:59 14:59 Intake Total 2245 Balance 2244 Intake: IV 5 Intake, Piggyback 100
--- NOTE | 2018-03-25 08:27 | CP.PCM.PN ---
Subjective - Date & Time of Evaluation Date of Evaluation: 03/25/18 Time of Evaluation: 07:53 - Subjective Subjective: Patient seen and examined this morning at bedside. Intermittent vomiting during night as per nurse. Afebrile. On promethezine drip. Physical exam: Gen: AAOx3, lethargy Cardiac: S1S2, no murmurs Respiratory: Clear to auscultation bilaterally Abdomen: soft, diffuse tenderness, ND, +FM No calf tenderness A/P: 27 yo F EGA 9.2 wks admitted with DKA and hyperemesis gravidarum. - US reviewed 03/24/18: EGA 9.1 wks, - Phenergan as per Dr Pantoja, recommds appreciated. - SW consulted: personal compliance with self care - Of note: pt reports desire termination of , encouraged to seek OB care as outpatient in the future to further discuss options. - Care per ICU team. - HBA1C pending - Signing off. Case d/w Dr. Dulce Maria Novoa PGY1 Objective - Vital Signs/Intake and Output Vital Signs (last 24 hours): Temp Pulse Resp BP Pulse Ox 98.1 F 93 H 15 137/78 100 03/25/18 08:00 03/25/18 08:00 03/25/18 08:00 03/25/18 08:00 03/25/18 08:00 Intake and Output: 03/25/18 03/25/18 06:59 18:59 Intake Total 2271 Balance 2271 - Medications Medications: Current Medications Acetaminophen (Tylenol 650mg/20.3ml Solution Ud) 650 mg PO Q4 PRN PRN Reason: Headache Last Admin: 03/25/18 07:24 Dose: 650 mg Dextrose (Dextrose 50% Inj) 0 ml IV STAT PRN; Protocol PRN Reason: Hypoglycemia Protocol Dextrose (Glutose 15) 0 gm PO ONCE PRN; Protocol PRN Reason: Hypoglycemia Protocol Dextrose (Dextrose 50% Inj) 0 ml IV STAT PRN; Protocol PRN Reason: Hypoglycemia Protocol Dextrose (Glutose 15) 0 gm PO ONCE PRN; Protocol PRN Reason: Hypoglycemia Protocol Enoxaparin Sodium (Lovenox) 40 mg SC DAILY DOMENIC PRN Reason: Protocol Glucagon (Glucagen Diagnostic Kit) 0 mg IM STAT PRN; Protocol PRN Reason: Hypoglycemia Protocol Glucagon (Glucagen Diagnostic Kit) 0 mg IM STAT PRN; Protocol PRN Reason: Hypoglycemia Protocol Insulin Human Regular 100 (units/ Sodium Chloride) 101 mls @ 7.07 mls/hr IV .[id number] DOMENIC; 7 UNITS/HR PRN Reason: Protocol Last Titration: 03/25/18 05:02 Dose: 1.5 units/hr, 1.51 mls/hr Promethazine HCl 25 mg/ Sodium (Chloride) 51 mls @ 102 mls/hr IVPB Q4H COUNT INCLUDES THE [facility] Last Admin: 03/25/18 07:00 Dose: 102 mls/hr Potassium Chloride/Dextrose/Sod Cl (Potassium Chl 20 Meq In D5-Ns) 1,000 mls @ 175 mls/hr IV .Q5H43M COUNT INCLUDES THE [facility] Stop: 03/26/18 07:35 - Labs Labs: 03/25/18 05:00 03/25/18 05:00
--- NOTE | 2018-03-25 08:48 | RAD ---
PROCEDURE: CHEST RADIOGRAPH, 1 VIEW HISTORY: routine COMPARISON: None available. FINDINGS: LUNGS: Patient has been extubated in the interval with increased inspiratory volume identified. No acute pulmonary disease appreciable bilaterally. PLEURA: No pneumothorax or pleural fluid seen. CARDIOVASCULAR: Normal. OSSEOUS STRUCTURES: No significant abnormalities. VISUALIZED UPPER ABDOMEN: Normal. OTHER FINDINGS: None. IMPRESSION: No interval acute cardiopulmonary disease appreciated. Interval extubation apparent.
--- NOTE | 2018-03-25 09:39 | CP.PCM.PN ---
Subjective - Date & Time of Evaluation Date of Evaluation: 03/25/18 Time of Evaluation: 09:00 - Subjective Subjective: Pt still has nausea, vomiting some saliva this am did not tolerate PO diet yseterday no fever no CP no SOB no abd pain Glucose better controlled Objective - Vital Signs/Intake and Output Vital Signs (last 24 hours): Temp Pulse Resp BP Pulse Ox 98.1 F 93 H 15 137/78 100 03/25/18 08:00 03/25/18 08:00 03/25/18 08:00 03/25/18 08:00 03/25/18 08:00 Intake and Output: 03/25/18 03/25/18 06:59 18:59 Intake Total 2271 Balance 2271 - Medications Medications: Current Medications Acetaminophen (Tylenol 650mg/20.3ml Solution Ud) 650 mg PO Q4 PRN PRN Reason: Headache Last Admin: 03/25/18 07:24 Dose: 650 mg Dextrose (Dextrose 50% Inj) 0 ml IV STAT PRN; Protocol PRN Reason: Hypoglycemia Protocol Dextrose (Glutose 15) 0 gm PO ONCE PRN; Protocol PRN Reason: Hypoglycemia Protocol Dextrose (Dextrose 50% Inj) 0 ml IV STAT PRN; Protocol PRN Reason: Hypoglycemia Protocol Dextrose (Glutose 15) 0 gm PO ONCE PRN; Protocol PRN Reason: Hypoglycemia Protocol Enoxaparin Sodium (Lovenox) 40 mg SC DAILY DOMENIC PRN Reason: Protocol Glucagon (Glucagen Diagnostic Kit) 0 mg IM STAT PRN; Protocol PRN Reason: Hypoglycemia Protocol Glucagon (Glucagen Diagnostic Kit) 0 mg IM STAT PRN; Protocol PRN Reason: Hypoglycemia Protocol Insulin Human Regular 100 (units/ Sodium Chloride) 101 mls @ 7.07 mls/hr IV .[id number] DOMENIC; 7 UNITS/HR PRN Reason: Protocol Last Titration: 03/25/18 05:02 Dose: 1.5 units/hr, 1.51 mls/hr Promethazine HCl 25 mg/ Sodium (Chloride) 51 mls @ 102 mls/hr IVPB Q4H [facility] Last Admin: 03/25/18 07:00 Dose: 102 mls/hr Potassium Chloride/Dextrose/Sod Cl (Potassium Chl 20 Meq In D5-Ns) 1,000 mls @ 175 mls/hr IV .Q5H43M [facility] Stop: 03/26/18 07:35 - Labs Labs: 03/25/18 05:00 03/25/18 05:00 - Constitutional Appears: No Acute Distress - Head Exam Head Exam: ATRAUMATIC, NORMAL INSPECTION, NORMOCEPHALIC - Eye Exam Eye Exam: EOMI, Normal appearance, PERRL Pupil Exam: NORMAL ACCOMODATION - ENT Exam ENT Exam: Mucous Membranes Dry, Normal External Ear Exam - Neck Exam Neck Exam: Full ROM. absent: Meningismus - Respiratory Exam Respiratory Exam: NORMAL BREATHING PATTERN. absent: Rales, Wheezes, Respiratory Distress - Cardiovascular Exam Cardiovascular Exam: REGULAR RHYTHM, +S1, +S2 - GI/Abdominal Exam GI & Abdominal Exam: Soft, Normal Bowel Sounds. absent: Tenderness - Extremities Exam Extremities Exam: Full ROM, Normal Capillary Refill. absent: Calf Tenderness, Pedal Edema - Back Exam Back Exam: Full ROM. absent: CVA tenderness (L), CVA tenderness (R) - Neurological Exam Neurological Exam: Alert, Awake, CN II-XII Intact, Oriented x3 Neuro motor strength exam: Left Upper Extremity: 5, Right Upper Extremity: 5, Left Lower Extremity: 5, Right Lower Extremity: 5 - Psychiatric Exam Psychiatric exam: Normal Affect, Normal Mood - Skin Skin Exam: Dry, Normal Color, Warm Assessment and Plan (1) DKA (diabetic ketoacidoses) Status: Acute (2) Hyperemesis Status: Acute (3) Intrauterine Status: Acute (4) Hypokalemia Status: Acute (5) Anemia Status: Chronic (6) DVT prophylaxis Status: Acute - Assessment and Plan (Free Text) Assessment: 27 y/o female with hx of Type I DM, came in because of intractable vomiting x 2 wks. Labs showed High anion gap acidosis with elevated Glucose . Pt was also found to be . SHe was started on IVF hydration, Insulin drip and Phenargan drip. Pelvic Sono ( OB) Intauterine Preg approx 9wks . (1) DKA (diabetic ketoacidoses) Status: Acute IVF hydration Insulin drip now down to 5 units/hr Endo consulted- Dr Cam monitor electrolytes (2) Hyperemesis Status: Acute OB consulted - started pt on Phenargan drip still with some nausea and couldnt tolerate Po diet (3) Intrauterine Status: Acute OB Sono: approx 9 wks intrauterine preg (4) Hypokalemia Status: Acute replace with IV KCl (5) Anemia prob chronic Status: Chronic drop likely dilutional (6) DVT prophylaxis Status: Acute Lovenox
[2018-03-25] MEDS: Enoxaparin 40 mg Syringe SC SCH (09:40)
[2018-03-25] MEDS: Potassium Chl 20 mEq in D5-NS 1,000 ML IV SCH ×3 (09:41→22:07)
[2018-03-25] MEDS: Insulin Lispro (humaLOG) 100 Units/ml Inj SC SCH ×5 (11:30→21:46)
--- NOTE | 2018-03-25 12:45 | US ---
PROCEDURE: OB Pelvic Ultrasound HISTORY: CONFIRMATION OF LMP: Unknown. COMPARISON: None available. FINDINGS: UTERUS: The uterus is anteverted measuring 9.1 x 5.1 x 5.9 cm without focal myometrial lesion appreciable. A gestational sac is identified within the endometrial cavity with a mean sac diameter 3.6 cm corresponding to 8 weeks 5 days. Yolk sac is not identified however pole is identified with a mean crown-rump length measurement 2.5 cm and ultrasonic age of 9 weeks 1 day. cardiac activity is recorded 150 beats per minute. No decidual hemorrhage identified. Overall decidual reaction appears unremarkable throughout. Estimated date of delivery 10/27/2018. CERVIX: Measures 4.0 cm. Long and closed. No cervical abnormality seen. RIGHT OVARY: Measures 3.0 x 2.9 x 2.5 cm. No mass lesion. Normal flow. LEFT OVARY: Measures 2.0 x 1.6 x 3.1 cm. No solid mass. Normal flow. FREE FLUID: None. OTHER FINDINGS: None. IMPRESSION: Single viable intrauterine gestation is identified with average ultrasonic age of 9 weeks 1 day. No decidual hemorrhage related. Concordant preliminary report from [facility], 03/24/2018.
--- NOTE | 2018-03-25 14:08 | PN ---
DATE: 03/25/2018 ENDO FOLLOWUP NOTE LOCATION: ICU room 427. SUBJECTIVE: This is a 27-year-old female with recent uncontrolled type 1 insulin-dependent diabetes presenting here with intractable vomiting and upper abdominal pain and evaluated also to be in diabetic ketoacidosis and dehydration with an incidental finding of a positive test and is now being followed closely for metabolic management. She received intensive insulin therapy and vigorous IV hydration overnight as noted. Today's glucose level has improved remarkably and the glucose values have ranged from 93 to 117 and 133 mg/dL. Her latest chemistry showed BUN of 4, sodium of 130, potassium of 3, chloride of 106, CO2 of 17, glucose is 96, and creatinine is 0.3. Her albumin level is 2.9. TSH is 1.70 and beta hCG is 669803.00. ASSESSMENT: This is a 27-year-old female with uncontrolled and decompensated type 1 insulin-dependent diabetes presenting with diabetic ketoacidosis and dehydration with persistent spurious hyponatremia and hypokalemia, currently receiving intensive insulin therapy and vigorous IV hydration as ordered. She also has concomitant positive test, which at this time, the patient has opted not to disclose to her mother. PLAN OF MANAGEMENT: As discussed with the patient and staff, we will modify her current insulin regimen to a more physiologic basal and bolus insulin drug combination and detailed orders have been given. We will start with Humalog given at 4 units subcu 3 times a day before meals to start at lunchtime today and we will titrate incrementally as her oral intake improves at this time. We will modify the coverage scale to obviate hypoglycemia and detailed orders have been given. We will also add basal insulin with Levemir at 20 units subcu at bedtime daily to start tonight. We will obtain serial chemistry and supplement accordingly as needed. We will follow up. Vera Cheung MD
--- NOTE | 2018-03-25 14:19 | CARD ---
APPROVED REPORT EKG Measurement Heart [id number] [place] [id number] <Conclusion> Sinus rhythm with short UT Otherwise normal ECG
[2018-03-25] MEDS: Promethazine 25 MG in Sodium Chloride 0.9% 50 ML IVPB PRN ×2 (18:04→21:36)
[2018-03-25] MEDS: Insulin Detemir 100 Units/ml Inj SC SCH (21:48)
[2018-03-26] MEDS: Potassium Chl 20 mEq in D5-NS 1,000 ML IV SCH ×2 (03:14→17:25)
[2018-03-26 06:48] LABS: HEMOGLOBIN 9.7 g/dL (12.0-16.0); MEAN CELL VOLUME 87.6 fl (81.0-99.0); MEAN CORPUSCULAR HEMOGLOBIN 30.9 pg (27.0-31.0); MEAN CORPUSCULAR HGB CONC 35.3 g/dL (33.0-37.0); RBC 3.13 Mil/uL (3.80-5.20); WHITE BLOOD COUNT 9.4 K/uL (4.8-10.8)
[2018-03-26] MEDS: Insulin Lispro (humaLOG) 100 Units/ml Inj SC SCH ×6 (06:50→22:10)
[2018-03-26] MEDS: Promethazine 25 MG in Sodium Chloride 0.9% 50 ML IVPB PRN ×2 (06:52→20:58)
[2018-03-26 07:01] LABS: ALBUMIN 2.8 g/dL (3.5-5.0); ALT/SGPT 19 U/L (9-52); AST/SGOT 13 U/L (14-36); BLOOD UREA NITROGEN < 2 mg/dl (7-17); CALCIUM 7.6 mg/dL (8.4-10.2); GFR AFRICAN-AMERICAN > 60; GFR NON-AFRICAN AMERICAN > 60
[2018-03-26 07:23] LABS: FERRITIN 75.7 ng/Ml (6.24-137.0)
[2018-03-26] MEDS ORDERED: Insulin Lispro (humaLOG) 100 Units/ml Inj SC SCH (07:30)
[2018-03-26] MEDS ORDERED: Potassium Phosphate 30 MMOLE in Sodium Chloride 0.9% 250 ML IV ONE (08:17)
[2018-03-26] MEDS: Enoxaparin 40 mg Syringe SC SCH (08:59)
[2018-03-26] MEDS: Potassium Chloride 20 mEq 100 ML IVPB SCH ×2 (09:01→16:18)
--- NOTE | 2018-03-26 10:28 | CP.PCM.PN ---
Subjective - Date & Time of Evaluation Date of Evaluation: 03/26/18 Time of Evaluation: 10:15 - Subjective Subjective: Still with nausea, better today vomited this am however now taking some Glucerna no abd pain denies CP no SOB Objective - Vital Signs/Intake and Output Vital Signs (last 24 hours): Temp Pulse Resp BP Pulse Ox 99.2 F 89 10 L 129/77 100 03/26/18 08:00 03/26/18 08:00 03/26/18 08:00 03/26/18 08:00 03/26/18 08:00 Intake and Output: 03/26/18 03/26/18 06:59 18:59 Intake Total 2200 Output Total 1150 Balance 1050 - Medications Medications: Current Medications Acetaminophen (Tylenol 650mg/20.3ml Solution Ud) 650 mg PO Q4 PRN PRN Reason: Headache Last Admin: 03/25/18 13:39 Dose: 650 mg Dextrose (Dextrose 50% Inj) 0 ml IV STAT PRN; Protocol PRN Reason: Hypoglycemia Protocol Dextrose (Glutose 15) 0 gm PO ONCE PRN; Protocol PRN Reason: Hypoglycemia Protocol Dextrose (Dextrose 50% Inj) 0 ml IV STAT PRN; Protocol PRN Reason: Hypoglycemia Protocol Dextrose (Glutose 15) 0 gm PO ONCE PRN; Protocol PRN Reason: Hypoglycemia Protocol Enoxaparin Sodium (Lovenox) 40 mg SC DAILY [facility] PRN Reason: Protocol Last Admin: 03/26/18 08:59 Dose: 40 mg Famotidine (Pepcid) 40 mg PO HS [facility] Last Admin: 03/25/18 21:50 Dose: 40 mg Glucagon (Glucagen Diagnostic Kit) 0 mg IM STAT PRN; Protocol PRN Reason: Hypoglycemia Protocol Glucagon (Glucagen Diagnostic Kit) 0 mg IM STAT PRN; Protocol PRN Reason: Hypoglycemia Protocol Promethazine HCl 25 mg/ Sodium (Chloride) 51 mls @ 102 mls/hr IVPB Q4 PRN PRN Reason: Nausea/Vomiting Last Admin: 03/26/18 06:52 Dose: 102 mls/hr Potassium Chloride (Potassium Chloride 20 Meq/100 Ml) 100 mls @ 50 mls/hr IVPB Q2 [facility] Stop: 03/26/18 13:59 Last Admin: 03/26/18 09:01 Dose: 50 mls/hr Potassium Phosphate 30 mmole/ (Sodium Chloride) 260 mls @ 65 mls/hr IV ONCE ONE Stop: 03/26/18 12:16 Insulin Detemir (Levemir) 20 units SC HS [facility] Last Admin: 03/25/18 21:48 Dose: 20 units Insulin Human Lispro (Humalog) 0 units SC ACHS [facility] Last Admin: 03/26/18 06:50 Dose: Not Given Insulin Human Lispro (Humalog) 8 units SC AC [facility] Last Admin: 03/26/18 08:58 Dose: 8 units - Labs Labs: 03/26/18 05:30 03/26/18 05:30 - Constitutional Appears: No Acute Distress - Head Exam Head Exam: ATRAUMATIC, NORMAL INSPECTION, NORMOCEPHALIC - Eye Exam Eye Exam: EOMI, Normal appearance, PERRL Pupil Exam: NORMAL ACCOMODATION - ENT Exam ENT Exam: Mucous Membranes Dry, Normal External Ear Exam - Neck Exam Neck Exam: Full ROM. absent: Meningismus - Respiratory Exam Respiratory Exam: NORMAL BREATHING PATTERN. absent: Rales, Wheezes, Respiratory Distress - Cardiovascular Exam Cardiovascular Exam: REGULAR RHYTHM, +S1, +S2 - GI/Abdominal Exam GI & Abdominal Exam: Soft, Normal Bowel Sounds. absent: Tenderness - Extremities Exam Extremities Exam: Full ROM, Normal Capillary Refill. absent: Calf Tenderness, Pedal Edema - Back Exam Back Exam: Full ROM. absent: CVA tenderness (L), CVA tenderness (R) - Neurological Exam Neurological Exam: Alert, Awake, CN II-XII Intact, Oriented x3 Neuro motor strength exam: Left Upper Extremity: 5, Right Upper Extremity: 5, Left Lower Extremity: 5, Right Lower Extremity: 5 - Psychiatric Exam Psychiatric exam: Normal Affect, Normal Mood - Skin Skin Exam: Dry, Normal Color, Warm Assessment and Plan (1) DKA (diabetic ketoacidoses) Status: Acute (2) Hyperemesis Status: Acute (3) Intrauterine Status: Acute (4) Hypokalemia Status: Acute (5) Anemia Status: Chronic (6) DVT prophylaxis Status: Acute - Assessment and Plan (Free Text) Assessment: 27 y/o female with hx of Type I DM, came in because of intractable vomiting x 2 wks. Labs showed High anion gap acidosis with elevated Glucose . Pt was also found to be . She was started on IVF hydration, Insulin drip and Phenargan drip. Pelvic Sono ( OB) Intauterine Preg approx 9wks. Pt still not tolerating PO diet. . (1) DKA (diabetic ketoacidoses) Status: Acute IVF hydration Pt was initially on Insulin drip- d/c and changed to SQ after gap was closed Endo consulted- Dr Cam monitor electrolytes cont Levemir Glucose dropped to 39 as pt was not taking anything PO, Insulin dose decreased (2) Hyperemesis Status: Acute OB consulted - started pt on Phenargan drip still with some nausea , vomited once this morning however when I came to see her , she was able to tolerate some Glucerna, we will cont to monitor and d/c pt home once able to tolerate PO diet (3) Intrauterine Status: Acute OB Sono: approx 9 wks intrauterine preg (4) Hypokalemia/Hypophosphatemia sec to poor PO intake Status: Acute replace with IV KCl replace Kphos (5) Anemia prob chronic Status: Chronic drop likely dilutional (6) DVT prophylaxis Status: Acute Lovenox
--- NOTE | 2018-03-26 14:18 | PN ---
DATE: 03/26/2018 ENDOCRINOLOGY FOLLOWUP NOTE LOCATION: Room 427, ICU. SUBJECTIVE: This is a 27-year-old female with recent uncontrolled type 1 insulin-dependent diabetes, presenting here with diabetic ketoacidosis and dehydration, and is now being followed closely for metabolic management. Her glycemic levels are fluctuating with extremes of glycemic fluctuation because of the variability of her oral intake as noted thereof. Her glucose levels today have ranged from 123 mg/dL to 210 mg/dL. The glucose dropped to 39 at lunchtime because of very nil oral intake for breakfast time today as noted. The chemistry showed a BUN of less than 2, sodium of 135, potassium of 2.8, chloride of 103, CO2 of 23, glucose 120, and creatinine of 0.3. So at this time, we will lower once again her basal and bolus insulin regimen and lower the Humalog to 6 units subcutaneous 3 times a day before meals to start at dinnertime today as ordered. We will also continue the same basal insulin given as 20 units subcutaneous at bedtime daily as given. We will titrate incrementally as indicated to optimize metabolic control. We will follow. Vera Cheung MD
[2018-03-26] MEDS ORDERED: Magnesium Sulfate 2 gm/50 ml 2 GM/50 ML BAG IVPB ONE (16:10)
[2018-03-26] MEDS: Insulin Detemir 100 Units/ml Inj SC SCH (22:09)
[2018-03-26] MEDS ORDERED: Trimethobenzamide 200 mg/2 mL Inj IM ONE (23:43)
--- NOTE | 2018-03-27 02:55 | PN ---
DATE: 03/26/2018SUBJECTIVE: The patient is seen and evaluated at the bedside. Past medical, surgical, and social history reviewed. A 27-year-old female with diabetes mellitus type 1, admitted with nausea, vomiting, dehydration, noted to be in DKA and positive for . Intrauterine gestation, estimated at 9 weeks. DKA resolved on insulin drip. Now, on basal insulin with mealtime. Still with nausea, vomiting, on Phenergan drip. Reduced p.o. intake. Wide fluctuations of blood sugar levels noted. Appreciate Endocrine followup. Remains alert, awake, and follow commands appropriate. Complaining of nausea, vomiting. No abdominal discomfort. No diarrhea. No dysuria. PHYSICAL EXAMINATION: VITAL SIGNS: Temperature 98.2, heart rate 90 and regular, blood pressure 120/70, mean arterial pressure 86, respiratory rate 11 to 16, oxygen saturation 91% to 100% on room air. Intake 2331 and output 1150, positive balance 1181. Weight 168 pounds. HEAD, EYES, EARS, NOSE, AND THROAT: Pupils are round and reactive. Conjunctivae pale. Sclerae anicteric. NECK: Supple. Trachea is central. CHEST: Bilateral breath sounds, diminished in intensity, clear to auscultation. HEART: Rhythm regular. S1 and S2 normal. No audible murmur. ABDOMEN: Bowel sounds are present. Soft. Liver and spleen not palpable. Bladder not distended. Mild tenderness in the lower quadrants. NEUROLOGIC: Nonfocal. SKIN: Without rash. CURRENT MEDICATIONS: Include Tylenol 650 every 4 hours p.r.n. for headache, cyanocobalamin 1000 mcg IM daily, Lovenox 40 subcutaneous daily, Pepcid 40 mg p.o. daily, glucagon as needed, Levemir 20 units subcutaneous at bedtime, insulin Lispro 6 units before meals and at bedtime, promethazine drip at mL per hour every 4 hours p.r.n. LABORATORY DATA: WBC 9.4, hemoglobin 9.7, hematocrit 27.4, platelet count of 340. Lactate level 1.9. SMA-7; sodium 135, potassium 2.8, chloride 103, CO2 of 23, blood urea nitrogen less than 10, creatinine less than 0.2. Random glucose 123, 245. Magnesium 1.6, phosphorus 1.2, ferritin 75.7, iron 44. AST 13, ALT 19, alkaline phosphatase 35. Total protein 5.7, albumin 2.8. Urinalysis negative. Beta hydroxybutyrate of 4.74 on 03/24/2018, on admission. DIAGNOSTIC DATA: Electrocardiogram, heart rate 92, PA 106, QT interval 354, QTc 437. MICROBIOLOGY: Urine culture, no growth. Blood culture, no growth reported. IMPRESSION: 1. Admitted with mild diabetic ketoacidosis, resolved. Seen by Endocrinology consult. Now, on basal combined with short-acting insulin with meals . 2. Hyperemesis gravidarum, still with nausea and vomiting, on IV fluids as well as on Phenergan drip. 3. Gestational intrauterine , followed by Area Operations Director. 4. Anemia, chronic disease. Stable. 5. Continue gastrointestinal and deep venous thrombosis prophylaxis. Juan Lara MD
[2018-03-27] MEDS: Promethazine 25 MG in Sodium Chloride 0.9% 50 ML IVPB PRN ×3 (05:11→19:04)
[2018-03-27] MEDS: Potassium Chl 20 mEq in D5-NS 1,000 ML IV SCH ×3 (05:15→16:59)
[2018-03-27 06:26] LABS: HEMOGLOBIN 9.1 g/dL (12.0-16.0); MEAN CELL VOLUME 88.7 fl (81.0-99.0); MEAN CORPUSCULAR HEMOGLOBIN 30.9 pg (27.0-31.0); MEAN CORPUSCULAR HGB CONC 34.8 g/dL (33.0-37.0); RBC 2.96 Mil/uL (3.80-5.20); RED CELL DISTRIBUTION WIDTH 13.1 % (11.5-14.5); WHITE BLOOD COUNT 9.9 K/uL (4.8-10.8)
[2018-03-27] MEDS ORDERED: Insulin Detemir 100 Units/ml Inj SC SCH (06:29)
[2018-03-27 07:06] LABS: BLOOD UREA NITROGEN < 2 mg/dl (7-17); CALCIUM 7.6 mg/dL (8.4-10.2); GFR AFRICAN-AMERICAN > 60; GFR NON-AFRICAN AMERICAN > 60
[2018-03-27] MEDS: Insulin Lispro (humaLOG) 100 Units/ml Inj SC SCH ×8 (08:32→22:32)
[2018-03-27] MEDS: Enoxaparin 40 mg Syringe SC SCH (08:35)
[2018-03-27] MEDS ORDERED: Dextrose 50% SYRINGE Inj (50 ml) IVP ONE (11:16)
[2018-03-27] MEDS ORDERED: Dextrose 50% SYRINGE Inj (50 ml) IVP STA (11:17)
--- NOTE | 2018-03-27 12:18 | CP.PCM.PN ---
Subjective - Date & Time of Evaluation Date of Evaluation: 03/27/18 Time of Evaluation: 10:00 - Subjective Subjective: Patient seen and examined. Still unable to tolerate food intake. Objective - Vital Signs/Intake and Output Vital Signs (last 24 hours): Temp Pulse Resp BP Pulse Ox 98.5 F 92 H 18 118/71 100 03/27/18 08:01 03/27/18 08:01 03/27/18 08:01 03/27/18 08:01 03/27/18 08:01 Intake and Output: 03/27/18 03/27/18 06:59 18:59 Intake Total 350 Balance 350 - Medications Medications: Current Medications Acetaminophen (Tylenol 650mg/20.3ml Solution Ud) 650 mg PO Q4 PRN PRN Reason: Headache Last Admin: 03/25/18 13:39 Dose: 650 mg Cyanocobalamin (Vitamin B12 1000 Mcg/Ml Inj) 1,000 mcg IM DAILY [facility] Last Admin: 03/27/18 08:36 Dose: 1,000 mcg Dextrose (Dextrose 50% Inj) 0 ml IV STAT PRN; Protocol PRN Reason: Hypoglycemia Protocol Last Admin: 03/27/18 05:59 Dose: 50 ml Dextrose (Glutose 15) 0 gm PO ONCE PRN; Protocol PRN Reason: Hypoglycemia Protocol Dextrose (Dextrose 50% Inj) 0 ml IV STAT PRN; Protocol PRN Reason: Hypoglycemia Protocol Last Admin: 03/26/18 10:52 Dose: 50 ml Dextrose (Glutose 15) 0 gm PO ONCE PRN; Protocol PRN Reason: Hypoglycemia Protocol Enoxaparin Sodium (Lovenox) 40 mg SC DAILY [facility] PRN Reason: Protocol Last Admin: 03/27/18 08:35 Dose: 40 mg Famotidine (Pepcid) 40 mg PO HS [facility] Last Admin: 03/26/18 22:22 Dose: 40 mg Glucagon (Glucagen Diagnostic Kit) 0 mg IM STAT PRN; Protocol PRN Reason: Hypoglycemia Protocol Glucagon (Glucagen Diagnostic Kit) 0 mg IM STAT PRN; Protocol PRN Reason: Hypoglycemia Protocol Promethazine HCl 25 mg/ Sodium (Chloride) 51 mls @ 102 mls/hr IVPB Q4 PRN PRN Reason: Nausea/Vomiting Last Admin: 03/27/18 10:11 Dose: 102 mls/hr Potassium Chloride/Dextrose/Sod Cl (Potassium Chl 20 Meq In D5-Ns) 1,000 mls @ 150 mls/hr IV .Q6H40M [facility] Stop: 03/27/18 16:30 Last Admin: 03/27/18 05:50 Dose: 150 mls/hr Insulin Detemir (Levemir) 12 units SC HS [facility] Insulin Human Lispro (Humalog) 0 units SC ACHS [facility] Last Admin: 03/27/18 11:10 Dose: Not Given Insulin Human Lispro (Humalog) 4 units SC AC [facility] Last Admin: 03/27/18 11:10 Dose: Not Given - Labs Labs: 03/27/18 06:05 03/27/18 06:05 - Constitutional Appears: No Acute Distress - Head Exam Head Exam: ATRAUMATIC - Eye Exam Eye Exam: absent: Scleral icterus - ENT Exam ENT Exam: Mucous Membranes Moist - Neck Exam Neck Exam: absent: Meningismus - Respiratory Exam Respiratory Exam: absent: Rales, Rhonchi, Wheezes, Respiratory Distress - Cardiovascular Exam Cardiovascular Exam: REGULAR RHYTHM, +S1, +S2 - GI/Abdominal Exam GI & Abdominal Exam: Soft. absent: Tenderness - Rectal Exam Rectal Exam: Deferred - Back Exam Back Exam: absent: tenderness - Neurological Exam Neurological Exam: Alert, Oriented x3 - Psychiatric Exam Psychiatric exam: Normal Affect - Skin Skin Exam: Dry, Intact Assessment and Plan - Assessment and Plan (Free Text) Assessment: 27 yo female with history of Type I DM, came in because of intractable vomiting for 3 wks. Labs showed High anion gap acidosis with hyperglycemia. She was also found to be . She was admitted with a diagnosis of DKA and Hyperemesis Gravidarum. . 1. DKA (diabetic ketoacidoses) continue IV hydration continue Levemir 12 units SC HS and Lispro 4 units SC AC appreciate endo consult with Dr Cheung BS fluctuating because patient still unable to tolerate oral intake 2. Hyperemesis Gravidarum still unable to tolerate food on Phenargan drip as per recommendation from OB was able to tolerate some Glucerna 3. Intrauterine sonogram showed approximately 9 wks 4. Hypokalemia/Hypophosphatemia secondary to poor intake and loss from vomiting continue IV KCl replacement replace Kphos 5. Anemia probably chronic drop likely dilutional from vigorus hydration 6. DVT prophylaxis continue Lovenox
[2018-03-27] MEDS: Potassium Chloride 20 mEq 100 ML IVPB SCH ×2 (14:31→16:59)
--- NOTE | 2018-03-27 21:23 | PN ---
DATE: 03/27/2018 ENDOCRINOLOGY FOLLOWUP NOTE LOCATION: Room 662. This is a 27-year-old female with recent uncontrolled type 1 insulin-dependent diabetes, presenting here with diabetic ketoacidosis and dehydration, and continues to have variable and suboptimal meal portions with contact center analyst hypoglycemia, and has improved clinically and metabolically as noted thereof. Her chemistry showed a BUN of less than 2, sodium 132, potassium 2.9, chloride 99, CO2 is 28, glucose is 229, and creatinine is 0.3. Her glucose levels have ranged from 116 to 157 mg/dL. So at this time, we will modify once again her basal and bolus insulin regimen and lower the Humalog to 4 units subcutaneously t.i.d. before meals as ordered. We will also lower the Levemir to 12 units subcutaneously at bedtime daily to start tonight. We will sign off from the endocrine and diabetic care at this time, and she will follow with her medical doctor and also with her high-risk perinatologist for the ongoing followup. We will follow up with you. Vera Cheung MD
[2018-03-28] MEDS: Promethazine 25 MG in Sodium Chloride 0.9% 50 ML IVPB PRN ×3 (01:16→13:04)
[2018-03-28] MEDS: Insulin Lispro (humaLOG) 100 Units/ml Inj SC SCH ×6 (08:59→16:39)
[2018-03-28] MEDS: Enoxaparin 40 mg Syringe SC SCH (09:02)
[2018-03-28 13:12] VITALS: PULSE 105
--- NOTE | 2018-03-28 15:31 | CP.PCM.DIS ---
Provider - Provider Date of Admission: 03/24/18 12:59 Attending physician: Jay Carballo MD Consults: Dr Cheung Time Spent in preparation of Discharge (in minutes): 25 Diagnosis - Discharge Diagnosis (1) DKA (diabetic ketoacidoses) Status: Acute Priority: High Comment: continue with Levemir 12 units SC HS and Humalog 4 units SC ACTID. follow up with PCP or SHELTER in a week (2) Hyperemesis gravidarum Status: Acute Comment: follow up with OB. Prochlorperazine 10mg PO QID prn for nausea/ vomiting. Pepcid 40mg PO HS Hospital Course - Lab Results Lab Results: Micro Results 03/24/18 10:50 Blood-Venous Blood Culture - Preliminary NO GROWTH AFTER 4 DAYS 03/24/18 11:30 Naris MRSA Culture (Admit) - Final MRSA NOT DETECTED 03/24/18 14:17 Urine,Clean Catch Urine Culture - Final No Growth (<1,000 CFU/ML) Most Recent Lab Values WBC 9.9 K/uL (4.8-10.8) 03/27/18 06:05 RBC 2.96 Mil/uL (3.80-5.20) L 03/27/18 06:05 Hgb 9.1 g/dL (12.0-16.0) L 03/27/18 06:05 Hct 26.2 % (34.0-47.0) L 03/27/18 06:05 MCV 88.7 fl (81.0-99.0) 03/27/18 06:05 MCH 30.9 pg (27.0-31.0) 03/27/18 06:05 MCHC 34.8 g/dL (33.0-37.0) 03/27/18 06:05 RDW 13.1 % (11.5-14.5) 03/27/18 06:05 Plt Count 291 K/uL (130-400) 03/27/18 06:05 MPV 9.0 fl (7.2-11.7) 03/24/18 10:50 Neut % (Auto) 89.8 % (50.0-75.0) H 03/24/18 10:50 Lymph % (Auto) 7.3 % (20.0-40.0) L 03/24/18 10:50 Rabun % (Auto) 2.6 % (0.0-10.0) 03/24/18 10:50 Eos % (Auto) 0.0 % (0.0-4.0) 03/24/18 10:50 Baso % (Auto) 0.3 % (0.0-2.0) 03/24/18 10:50 Neut # (Auto) 15.1 K/uL (1.8-7.0) H 03/24/18 10:50 Lymph # (Auto) 1.2 K/uL (1.0-4.3) 03/24/18 10:50 Rabun # (Auto) 0.4 K/uL (0.0-0.8) 03/24/18 10:50 Eos # (Auto) 0.0 K/uL (0.0-0.7) 03/24/18 10:50 Baso # (Auto) 0.1 K/uL (0.0-0.2) 03/24/18 10:50 Neutrophils % (Manual) 87 % (42-75) H 03/24/18 10:50 Band Neutrophils % 4 % (0-2) H 03/24/18 10:50 Lymphocytes % (Manual) 7 % (20-50) L 03/24/18 10:50 Monocytes % (Manual) 2 % (0-10) 03/24/18 10:50 Platelet Estimate Normal (NORMAL) 03/24/18 10:50 RBC Morphology Normal (NORMAL) 03/24/18 10:50 pO2 26 mm/Hg (30-55) L 03/24/18 10:54 VBG pH 7.31 (7.32-7.43) L 03/24/18 10:54 VBG pCO2 31 mmHg (40-60) L 03/24/18 10:54 VBG HCO3 16.1 mmol/L 03/24/18 10:54 VBG Total CO2 16.6 mmol/L (22-28) L 03/24/18 10:54 VBG O2 Sat (Calc) 54.0 % (40-65) 03/24/18 10:54 VBG Base Excess -9.4 mmol/L (0.0-2.0) L 03/24/18 10:54 VBG Potassium 4.1 mmol/L (3.6-5.2) 03/24/18 10:54 Sodium 135.0 mmol/L (132-148) 03/24/18 10:54 Chloride 100.0 mmol/L (98-107) 03/24/18 10:54 Glucose 318 mg/dL (65-105) H 03/24/18 10:54 Lactate 1.9 mmol/L (0.7-2.1) 03/24/18 10:54 FiO2 21.0 % 03/24/18 10:54 Sodium 132 mmol/l (132-148) 03/27/18 06:05 Potassium 2.9 MMOL/L (3.6-5.0) L 03/27/18 06:05 Chloride 99 mmol/L (98-107) 03/27/18 06:05 Carbon Dioxide 28 mmol/L (22-30) 03/27/18 06:05 Anion Gap 8 (10-20) L 03/27/18 06:05 BUN < 2 mg/dl (7-17) L 03/27/18 06:05 Creatinine 0.3 mg/dl (0.7-1.2) L 03/27/18 06:05 Est GFR ( Amer) > 60 03/27/18 06:05 Est GFR (Non-Af Amer) > 60 03/27/18 06:05 POC Glucose (mg/dL) 157 mg/dL (65-110) H 03/28/18 10:59 Random Glucose 229 mg/dL (65-105) H 03/27/18 06:05 Hemoglobin A1c 9.9 % (4.2-6.5) H 03/25/18 05:30 Calcium 7.6 mg/dL (8.4-10.2) L 03/27/18 06:05 Phosphorus 2.6 mg/dl (2.5-4.5) 03/27/18 06:05 Magnesium 1.7 MG/DL (1.6-2.3) 03/27/18 06:05 Iron 44 ug/dL (37-170) 03/26/18 05:30 Ferritin 75.7 ng/Ml (6.24-137.0) 03/26/18 05:30 Total Bilirubin 1.0 mg/dl (0.2-1.3) 03/26/18 05:30 AST 13 U/L (14-36) L 03/26/18 05:30 ALT 19 U/L (9-52) 03/26/18 05:30 Alkaline Phosphatase 35 U/L (38-126) L 03/26/18 05:30 Troponin I < 0.0120 ng/mL (0.00-0.120) 03/25/18 08:00 Total Protein 5.7 G/DL (6.3-8.2) L 03/26/18 05:30 Albumin 2.8 g/dL (3.5-5.0) L 03/26/18 05:30 Globulin 2.9 gm/dL (2.2-3.9) 03/26/18 05:30 Albumin/Globulin Ratio 1.0 (1.0-2.1) 03/26/18 05:30 Lipase 59 U/L (23-300) 03/24/18 10:50 Vitamin B12 632 pg/mL (239-931) 03/26/18 05:30 Free T4 1.16 ng/dL (0.78-2.19) 03/25/18 05:30 TSH 3rd Generation 1.70 mIU/ML (0.46-4.68) 03/25/18 05:00 Beta HCG, Quant 911512.00 mIU/mL 03/24/18 11:11 Venous Blood Potassium 4.1 mmol/L (3.6-5.2) 03/24/18 10:54 Urine Color Straw (YELLOW) 03/24/18 14:17 Urine Clarity Clear (Clear) 03/24/18 14:17 Urine pH 6.0 (5.0-8.0) 03/24/18 14:17 Ur Specific [place] 1.030 (1.003-1.030) 03/24/18 14:17 Urine Protein 30 mg/dL (NEGATIVE) 03/24/18 14:17 Urine Glucose (UA) >=500 mg/dL (Normal) 03/24/18 14:17 Urine Ketones 80 mg/dL (NEGATIVE) 03/24/18 14:17 Urine Blood Negative (NEGATIVE) 03/24/18 14:17 Urine Nitrate Negative (NEGATIVE) 03/24/18 14:17 Urine Bilirubin Negative (NEGATIVE) 03/24/18 14:17 Urine Urobilinogen 0.2-1.0 mg/dL (0.2-1.0) 03/24/18 14:17 Ur Leukocyte Esterase Neg [place]/uL (Negative) 03/24/18 14:17 Urine RBC (Auto) 1 /hpf (0-3) 03/24/18 14:17 Urine Microscopic WBC 1 /hpf (0-5) 03/24/18 14:17 Ur Squamous Epith Cells 1 /hpf (0-5) 03/24/18 14:17 B-Hydroxybutyrate 4.74 mM (0.02-0.27) H 03/24/18 11:11 - Hospital Course Hospital Course: 27 yo female with history of DM1 since 14 yo has been vomiting on and off for 3 weeks accompanied with abdominal pain. She was admitted at [facility] for the same complaint and was discharged after a week. She was then seen at least 3 times at the [facility] ER because of the same complaint. She was treated with IV hydration plus insulin for her diabetes and then sent home. She then came to [facility] ER for the same complaint and was found to be with DKA. She was also found to be and had history of Hyperemesis Gravidarum. She was admitted in ICU and put on DKA regimen. Her diabetes was controlled but she continued to have nausea. She was discharged in stable condition and advised to follow up with OB. She was sent home with prescriptions for Prochlorperazine and Pepcid plus her regular dose of insulin. Discharge Exam - Head Exam Head Exam: ATRAUMATIC - Eye Exam Eye Exam: absent: Scleral icterus - ENT Exam ENT Exam: Mucous Membranes Moist - Respiratory Exam Respiratory Exam: absent: Rales, Rhonchi, Wheezes, Respiratory Distress - Cardiovascular Exam Cardiovascular Exam: REGULAR RHYTHM, +S1, +S2 - GI/Abdominal Exam GI & Abdominal Exam: Soft. absent: Tenderness - Rectal Exam Rectal Exam: Deferred - Back Exam Back exam: absent: tenderness - Neurological Exam Neurological exam: Alert, Oriented x3 - Psychiatric Exam Psychiatric exam: Normal Affect Discharge Plan - Discharge Medications Prescriptions: Famotidine [Pepcid] 40 mg PO HS #14 tab Insulin Detemir [Levemir] 12 units SC HS #1 vial Prochlorperazine [Compazine] 10 mg PO QID PRN #30 tab PRN Reason: Nausea/Vomiting - Follow Up Plan Condition: FAIR Disposition: HOME/ ROUTINE Instructions: Nausea and Vomiting of (DC), Diabetic Ketoacidosis (DC) Additional Instructions: hacer larry con banuelos primario y banuelos hand trimmer dentro de 1 semana Referrals: [facility] [Outside] Vera Cheung MD [Medical Doctor] - Christy العراقي MD [Staff Provider] -
[2018-03-28] MEDS ORDERED: Potassium Chloride 20 mEq ER Tab PO ONE (15:48)
[2018-03-28 16:05] VITALS: BP 124/80; RESP 18; TEMP 98.5; O2SAT 98
== END 2018-03-28 19:20 | disposition home or self-care (01) | DRG 781 ==
LOC: H.ER 10:16 → H.ERHOLD 12:59 → H.ICU/CCU 18:21 → H.MEDSURG1 03-26 23:51
DX: O21.1 Hyperemesis gravidarum with metabolic disturbance (principal); E10.10 Type 1 diabetes mellitus with ketoacidosis without coma; E87.1 Hypo-osmolality and hyponatremia; O24.011 Pre-existing type 1 diabetes mellitus, in pregnancy, first trimester; E86.0 Dehydration; Z3A.09 9 weeks gestation of pregnancy; Z79.4 Long term (current) use of insulin; O99.011 Anemia complicating pregnancy, first trimester; E87.6 Hypokalemia; E10.649 Type 1 diabetes mellitus with hypoglycemia without coma; E83.39 Other disorders of phosphorus metabolism; D63.8 Anemia in other chronic diseases classified elsewhere; E78.00 Pure hypercholesterolemia, unspecified; E78.5 Hyperlipidemia, unspecified; O99.281 Endocrine, nutritional and metabolic diseases complicating pregnancy, first trimester

== ENCOUNTER 2018-04-15 20:18 | Observation (INO) | payer MEDICAID, OTHER ==
[2018-04-15 20:18] VITALS: BMI 19.5
[2018-04-15] MEDS ORDERED: Dextrose 50% SYRINGE Inj (50 ml) ONE (20:44)
[2018-04-15] MEDS ORDERED: Dextrose 50% SYRINGE Inj (50 ml) IVP ONE ×2 (20:45)
[2018-04-15 20:56] LABS: BASO % 0.5 % (0.0-2.0); EOS # 0.1 K/uL (0.0-0.7); EOS % 0.9 % (0.0-4.0); HEMOGLOBIN 9.4 g/dL (12.0-16.0); LYMPH # 3.2 K/uL (1.0-4.3); LYMPH % 32.4 % (20.0-40.0); MEAN CELL VOLUME 90.3 fl (81.0-99.0); MEAN CORPUSCULAR HEMOGLOBIN 31.2 pg (27.0-31.0); MEAN CORPUSCULAR HGB CONC 34.5 g/dL (33.0-37.0); MEAN PLATELET VOLUME 7.9 fl (7.2-11.7); MONO # 0.9 K/uL (0.0-0.8); MONO % 8.8 % (0.0-10.0); NEUT # 5.7 K/uL (1.8-7.0); NEUT % 57.4 % (50.0-75.0); RBC 3.02 Mil/uL (3.80-5.20); RED CELL DISTRIBUTION WIDTH 14.4 % (11.5-14.5); WHITE BLOOD COUNT 9.9 K/uL (4.8-10.8)
[2018-04-15 21:04] LABS: SQUAMOUS EPITHIAL 2 /hpf (0-5); URINE BILIRUBIN NEGATIVE (NEGATIVE); URINE BLOOD NEGATIVE (NEGATIVE); URINE CLARITY SLIGHTY-CLOUDY (Clear); URINE COLOR YELLOW (YELLOW); URINE GLUCOSE (UA) >=500 mg/dL (Normal); URINE LEUKOCYTE ESTERASE NEG Leu/uL (Negative); URINE PROTEIN NEGATIVE (NEGATIVE); URINE UROBILINOGEN 0.2-1.0 mg/dL (0.2-1.0)
[2018-04-15] MEDS ORDERED: DiphenhydrAMINE 50 mg/ml Inj IVP STA (21:16)
[2018-04-15 21:31] LABS: ALB/GLOB RATIO 1.2 (1.0-2.1); ALBUMIN 3.8 g/dL (3.5-5.0); ALT/SGPT 19 U/L (9-52); AST/SGOT 13 U/L (14-36); BLOOD UREA NITROGEN 12 mg/dl (7-17); CALCIUM 9.5 mg/dL (8.4-10.2); GFR AFRICAN-AMERICAN > 60; GFR NON-AFRICAN AMERICAN > 60
--- NOTE | 2018-04-15 22:06 | ED PDOC ---
HPI: Psych/Substance Abuse Time Seen by Provider: 04/15/18 20:28 Chief Complaint (Nursing): Psychiatric Evaluation History Per: Patient, Family Additional Complaint(s): 27 y/o female with IUP 12 wks gestation and hx of anxiety/depression brought to ED by mother as pt woke up this morning and was unable to talk, chew, or swallow and pt was complaining of throat pain. Mother states pt was able to eat a little soup later in the day but the throat pain worsened. Pt denies any difficulty breathing, throat itchiness, cough, congestion. Also complains of nausea and vomiting for the past 2 days. Pt was recently discharged from hospital 3 days ago for intractable vomiting and uncontrolled sugars. During her admission, she was evaluated by psychiatry for suicidal ideation. Mother reports pt has been very anxious. Past Medical History Vital Signs: Last Vital Signs Temp 97.8 F 04/15/18 20:19 Pulse 112 H 04/15/18 20:19 Resp 16 04/15/18 20:19 BP 103/58 L 04/15/18 20:19 Pulse Ox 99 04/15/18 20:19 - Medical History PMH: Diabetes (type I), Hypercholesterolemia, Hyperlipidemia Denies: HIV, Chronic Kidney Disease - Family History Family History: States: Unknown Family Hx - Home Medications Home Medications: Ambulatory Orders Medication Instructions Recorded Insulin Aspart, Recombinant 10 unit SQ TID 04/15/18 [Novolog] Insulin Detemir [Levemir] 15 unit SQ BID 04/15/18 Multivit/Folic Acid/I 1 tab PO DAILY 04/15/18 [ Plus] Prochlorperazine [Compazine] 10 mg PO QID PRN 04/15/18 - Allergies Allergies/Adverse Reactions: Allergies Allergy/AdvReac Type Severity Reaction Status Date / Time No Known Allergies Allergy Verified 04/15/18 20:19 Review of Systems Constitutional: Negative for: Fever Cardiovascular: Negative for: Chest Pain Respiratory: Negative for: Cough, Shortness of Breath Gastrointestinal: Positive for: Nausea. Negative for: Vomiting Skin: Negative for: Rash Physical Exam - Physical Exam Appears: Positive for: In Acute Distress (Pt seen with mouth open, stiff jaw movements, and moderatly distressed) Skin: Positive for: Normal Color Eye Exam: Positive for: Normal appearance. Negative for: Periorbital swelling ENT: Positive for: Normal ENT Inspection, Other (Mild drooling). Negative for: Nasal Congestion, Pharyngeal Erythema, Tonsillar Exudate (Oropharynx wnl), Tonsillar Swelling Neck: Positive for: Painless ROM, Supple. Negative for: Pain On Movement Of Neck (No thyromegaly or LAD) Cardiovascular/Chest: Positive for: Regular Rate, Rhythm. Negative for: Murmur Respiratory: Positive for: Normal Breath Sounds. Negative for: Accessory Muscle Use, Crackles, Wheezing Gastrointestinal/Abdominal: Positive for: Bowel Sounds, Soft. Negative for: Tenderness Extremity: Negative for: Pedal Edema Neurologic/Psych: Positive for: Alert (appears anxious). Negative for: Motor/ Sensory Deficits, Facial Droop - Laboratory Results Result Diagrams: 04/15/18 20:47 04/15/18 20:47 - ECG O2 Sat by Pulse Oximetry: 99 Medical Decision Making Medical Decision Makin27 y/o female with hx of anxiety/depression presenting with acute dysphagia/ odynophagia, inability to talk or swallow x1 day and ongoing nausea x3 days intractable to medication. POCG 47 on presentation Plan: D50 x1, Benadryl 50mg PO x1, Reglan x1, Zofran x1, CBC, CMP, Mag On reassessment, pt still vomiting. POCG 50. Will admit pt to hospital for intractable vomiting and control of blood glucose. Disposition - Clinical Impression Clinical Impression: Hyperemesis gravidarum, Intrauterine - Patient ED Disposition Is Patient to be Admitted: Yes - Disposition Disposition Time: 00:05 Condition: STABLE
--- NOTE | 2018-04-15 22:40 | CP.PCM.HP ---
History of Present Illness - History of Present Illness History of Present Illness: CC: Hypoglycemia, n/v History largely from mother in [place] HPI: This is a 27 y/o female that is 14 weeks with a MHx significant for DM1. She was recently admitted here for DKA and also was diagnosed with hyperemesis gravidarum. She was discharged 3 days ago in improved condition. Her n/v started again today, and her blood sugar dropped to <70 and she was brought to the ER by her mother. Patient also was noted to have a ?dystonic reaction that resolved with a dose of IV benadryl. Patient has been taking her full regimen of LA/SA insulin even when not consistently eating. 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 ROS: 14 systems reviewed, negative other than HPI MHx: DM1, HLD SHx: None Allergies: NKDA Medications: Per med rec Family Hx: No relevant findings Social Hx: Lives at home, no tobacco or EtOH Present on Admission - Present on Admission Any Indicators Present on Admission: No Past Patient History - Infectious Disease Hx of Infectious Diseases: None - Tetanus Immunizations Tetanus Immunization: Unknown - Past Medical History & Family History Past Medical History?: Yes - Past Social History Smoking Status: Never Smoked - CARDIAC Hx Hypercholesterolemia: Yes - PULMONARY Hx Respiratory Disorders: No - NEUROLOGICAL Hx Neurological Disorder: No - HEENT Hx HEENT Problems: No - RENAL Hx Chronic Kidney Disease: No - ENDOCRINE/METABOLIC Hx Endocrine Disorders: Yes Hx Diabetes Mellitus Type 2: Yes - HEMATOLOGICAL/ONCOLOGICAL Hx Human Immunodeficiency Virus (HIV): No - INTEGUMENTARY Hx Dermatological Problems: No - MUSCULOSKELETAL/RHEUMATOLOGICAL Hx Musculoskeletal Disorders: No Hx Falls: No - GASTROINTESTINAL Hx Gastrointestinal Disorders: Yes Hx Vomiting: Yes - GENITOURINARY/GYNECOLOGICAL Hx Genitourinary Disorders: No - PSYCHIATRIC Hx Psychophysiologic Disorder: No - SURGICAL HISTORY Hx Surgeries: Yes Hx Section: Yes Other/Comment: Tracheostomy. has infected absess in mouth which caused sepsis and intubation - ANESTHESIA Hx Anesthesia: Yes Hx Anesthesia Reactions: No Hx Malignant Hyperthermia: No Meds Allergies/Adverse Reactions: Allergies Allergy/AdvReac Type Severity Reaction Status Date / Time No Known Allergies Allergy Verified 04/15/18 20:19 Physical Exam - Constitutional Appears: No Acute Distress - Head Exam Head Exam: ATRAUMATIC, NORMOCEPHALIC - Eye Exam Eye Exam: EOMI, PERRL - ENT Exam ENT Exam: Mucous Membranes Dry - Neck Exam Neck exam: Positive for: Full Rom - Respiratory Exam Respiratory Exam: Clear to Auscultation Bilateral, NORMAL BREATHING PATTERN - Cardiovascular Exam Cardiovascular Exam: REGULAR RHYTHM, +S1, +S2 - GI/Abdominal Exam GI & Abdominal Exam: Normal Bowel Sounds, Soft - Extremities Exam Extremities exam: Positive for: normal inspection - Neurological Exam Neurological exam: Alert, CN II-XII Intact, Oriented x3 - Psychiatric Exam Psychiatric exam: Normal Affect, Normal Mood - Skin Skin Exam: Dry, Warm Results - Vital Signs Recent Vital Signs: Last Vital Signs Temp 97.8 F 04/15/18 20:19 Pulse 112 H 04/15/18 20:19 Resp 16 04/15/18 20:19 BP 103/58 L 04/15/18 20:19 Pulse Ox 99 04/15/18 22:18 - Labs Result Diagrams: 04/15/18 20:47 04/15/18 20:47 Labs: Laboratory Results - last 24 hr 04/15/18 04/15/18 04/15/18 20:46 20:47 20:47 WBC 9.9 RBC 3.02 L Hgb 9.4 L Hct 27.2 L MCV 90.3 MCH 31.2 H MCHC 34.5 RDW 14.4 Plt Count 375 D MPV 7.9 Neut % (Auto) 57.4 Lymph % (Auto) 32.4 Lynn % (Auto) 8.8 Eos % (Auto) 0.9 Baso % (Auto) 0.5 Neut # (Auto) 5.7 Lymph # (Auto) 3.2 Lynn # (Auto) 0.9 H Eos # (Auto) 0.1 Baso # (Auto) 0.0 Sodium 135 Potassium 4.2 Chloride 97 L Carbon Dioxide 27 Anion Gap 15 BUN 12 Creatinine 0.9 Est GFR ( Amer) > 60 Est GFR (Non-Af Amer) > 60 POC Glucose (mg/dL) Random Glucose 50 L Calcium 9.5 Magnesium 1.8 Total Bilirubin 0.3 AST 13 L ALT 19 Alkaline Phosphatase 38 Total Protein 7.0 Albumin 3.8 Globulin 3.1 Albumin/Globulin Ratio 1.2 Beta HCG, Quant 70018.00 Urine Color Yellow Urine Clarity Slighty-cloudy Urine pH 6.0 Ur Specific [place] 1.014 Urine Protein Negative Urine Glucose (UA) >=500 Urine Ketones Negative Urine Blood Negative Urine Nitrate Negative Urine Bilirubin Negative Urine Urobilinogen 0.2-1.0 Ur Leukocyte Esterase Neg Urine RBC (Auto) 1 Urine Microscopic WBC 1 Ur Squamous Epith Cells 2 04/15/18 21:00 WBC RBC Hgb Hct MCV MCH MCHC RDW Plt Count MPV Neut % (Auto) Lymph % (Auto) Lynn % (Auto) Eos % (Auto) Baso % (Auto) Neut # (Auto) Lymph # (Auto) Lynn # (Auto) Eos # (Auto) Baso # (Auto) Sodium Potassium Chloride Carbon Dioxide Anion Gap BUN Creatinine Est GFR ( Amer) Est GFR (Non-Af Amer) POC Glucose (mg/dL) 294 H Random Glucose Calcium Magnesium Total Bilirubin AST ALT Alkaline Phosphatase Total Protein Albumin Globulin Albumin/Globulin Ratio Beta HCG, Quant Urine Color Urine Clarity Urine pH Ur Specific [place] Urine Protein Urine Glucose (UA) Urine Ketones Urine Blood Urine Nitrate Urine Bilirubin Urine Urobilinogen Ur Leukocyte Esterase Urine RBC (Auto) Urine Microscopic WBC Ur Squamous Epith Cells Assessment & Plan (1) Hypoglycemia Assessment and Plan: 27 y/o female 14 weeks with recent admission for DKA and for hyperemesis gravidarum, who comes in today with persistent hypoglycemia, and ? dystonic reaction in setting of recurrent n/v and insulin use. 1) Hypoglycemia/DM1 -- likely due to persistent vomiting -Hold Insulin overnight, resume in AM if blood sugar is stable or if blood sugar is significantly elevated overnight -IV D5 1/2 NS -Q4H accucheck 2) Hyperemesis gravidarum -- still present, somewhat improved from before -Clear liq diet -Zofran and Reglan IV PRN for n/v 3) DVT PPx -- SCDs Status: Acute (2) Hyperemesis gravidarum Status: Acute (3) DVT prophylaxis Status: Acute
[2018-04-15 22:59] VITALS: RESP 18
[2018-04-15] MEDS: Dextrose 5%/0.45% NS 1,000 ML IV SCH (23:25)
[2018-04-16 07:57] LABS: BLOOD UREA NITROGEN 8 mg/dl (7-17); CALCIUM 8.6 mg/dL (8.4-10.2); GFR AFRICAN-AMERICAN > 60; GFR NON-AFRICAN AMERICAN > 60
[2018-04-16] MEDS ORDERED: Prenatal Multivit/Folic Acid/Iron Tab PO SCH (09:00)
[2018-04-16] MEDS ORDERED: Insulin Detemir 100 Units/ml Inj SC SCH (09:00)
--- NOTE | 2018-04-16 10:08 | CARD ---
APPROVED REPORT EKG Measurement Heart [id number] [place] 134P-46 [id number] <Conclusion> Unusual P axis, possible ectopic atrial tachycardia Low voltage QRS Nonspecific T wave abnormality Abnormal ECG
[2018-04-16] MEDS: Dextrose 5%/0.45% NS 1,000 ML IV SCH (12:00)
[2018-04-16 12:04] VITALS: BP 124/76; PULSE 104; TEMP 98.2; O2SAT 99
--- NOTE | 2018-04-16 13:07 | CP.PCM.PN ---
Subjective - Date & Time of Evaluation Date of Evaluation: 04/16/18 Time of Evaluation: 09:00 - Subjective Subjective: Still with some nausea and vomiting however much improved from previous tolerating Glucerna no CP no SOB no abd pain no fever Objective - Vital Signs/Intake and Output Vital Signs (last 24 hours): Temp Pulse Resp BP Pulse Ox 98.2 F 104 H 18 124/76 99 04/16/18 12:04 04/16/18 12:04 04/16/18 12:04 04/16/18 12:04 04/16/18 12:04 - Medications Medications: Current Medications Dextrose/Sodium Chloride (Dextrose 5%/0.45% Ns 1000 Ml) 1,000 mls @ 75 mls/hr IV [id number] [facility] Stop: 04/17/18 01:24 Last Admin: 04/16/18 12:00 Dose: 75 mls/hr Insulin Detemir (Levemir) 8 units SC BID [facility] Last Admin: 04/16/18 08:56 Dose: 8 units Metoclopramide HCl (Reglan) 10 mg IVP Q6 PRN PRN Reason: Nausea/Vomiting Last Admin: 04/16/18 10:50 Dose: 10 mg Ondansetron HCl (Zofran Inj) 4 mg IVP Q6 PRN PRN Reason: Nausea/Vomiting Last Admin: 04/16/18 04:15 Dose: 4 mg Multivit/Folic Acid/Iron () 1 tab PO DAILY [facility] Last Admin: 04/16/18 08:56 Dose: 1 tab Prochlorperazine (Compazine) 10 mg PO QID PRN PRN Reason: Nausea/Vomiting Last Admin: 04/16/18 11:59 Dose: 10 mg - Labs Labs: 04/15/18 20:47 04/16/18 06:20 - Constitutional Appears: Non-toxic, No Acute Distress - Head Exam Head Exam: ATRAUMATIC, NORMAL INSPECTION, NORMOCEPHALIC - Eye Exam Eye Exam: EOMI, Normal appearance, PERRL Pupil Exam: NORMAL ACCOMODATION - ENT Exam ENT Exam: Mucous Membranes Moist, Normal External Ear Exam - Neck Exam Neck Exam: Full ROM. absent: Meningismus - Respiratory Exam Respiratory Exam: NORMAL BREATHING PATTERN. absent: Respiratory Distress - Cardiovascular Exam Cardiovascular Exam: REGULAR RHYTHM, +S1, +S2 - GI/Abdominal Exam GI & Abdominal Exam: Soft, Normal Bowel Sounds. absent: Tenderness - Extremities Exam Extremities Exam: Full ROM, Normal Capillary Refill. absent: Calf Tenderness - Back Exam Back Exam: Full ROM. absent: CVA tenderness (L), CVA tenderness (R) - Neurological Exam Neurological Exam: Alert, Awake, CN II-XII Intact, Oriented x3 Neuro motor strength exam: Left Upper Extremity: 5, Right Upper Extremity: 5, Left Lower Extremity: 5, Right Lower Extremity: 5 - Psychiatric Exam Psychiatric exam: Normal Affect, Normal Mood - Skin Skin Exam: Dry, Normal Color, Warm Assessment and Plan - Assessment and Plan (Free Text) Assessment: 27 y/o female 14 weeks with recent admission for DKA and for hyperemesis gravidarum, who comes in because of persistent hypoglycemia. 1) Hypoglycemia in DM1 -- likely due to poor PO intake - resume Levemir however , will decrease dose to 8units BID - start Glucerna -Q4H accucheck 2) Hyperemesis gravidarum -- still present, but improved from before -Clear liq diet -Zofran and Reglan IV PRN for n/v (3) DVT prophylaxis Status: Acute
--- NOTE | 2018-04-16 15:23 | CP.PCM.DIS ---
Provider - Provider Date of Admission: 04/15/18 22:22 Attending physician: Felix Zhong MD Time Spent in preparation of Discharge (in minutes): 35 Diagnosis - Discharge Diagnosis (1) Hypoglycemia Status: Acute (2) Hyperemesis gravidarum Status: Chronic (3) Intrauterine Status: Chronic (4) DM type 1 (diabetes mellitus, type 1) Status: Chronic Hospital Course - Lab Results Lab Results: Most Recent Lab Values WBC 9.9 K/uL (4.8-10.8) 04/15/18 20:47 RBC 3.02 Mil/uL (3.80-5.20) L 04/15/18 20:47 Hgb 9.4 g/dL (12.0-16.0) L 04/15/18 20:47 Hct 27.2 % (34.0-47.0) L 04/15/18 20:47 MCV 90.3 fl (81.0-99.0) 04/15/18 20:47 MCH 31.2 pg (27.0-31.0) H 04/15/18 20:47 MCHC 34.5 g/dL (33.0-37.0) 04/15/18 20:47 RDW 14.4 % (11.5-14.5) 04/15/18 20:47 Plt Count 375 K/uL (130-400) D 04/15/18 20:47 MPV 7.9 fl (7.2-11.7) 04/15/18 20:47 Neut % (Auto) 57.4 % (50.0-75.0) 04/15/18 20:47 Lymph % (Auto) 32.4 % (20.0-40.0) 04/15/18 20:47 [place] % (Auto) 8.8 % (0.0-10.0) 04/15/18 20:47 Eos % (Auto) 0.9 % (0.0-4.0) 04/15/18 20:47 Baso % (Auto) 0.5 % (0.0-2.0) 04/15/18 20:47 Neut # (Auto) 5.7 K/uL (1.8-7.0) 04/15/18 20:47 Lymph # (Auto) 3.2 K/uL (1.0-4.3) 04/15/18 20:47 [place] # (Auto) 0.9 K/uL (0.0-0.8) H 04/15/18 20:47 Eos # (Auto) 0.1 K/uL (0.0-0.7) 04/15/18 20:47 Baso # (Auto) 0.0 K/uL (0.0-0.2) 04/15/18 20:47 Sodium 129 mmol/l (132-148) L 04/16/18 06:20 Potassium 4.4 MMOL/L (3.6-5.0) 04/16/18 06:20 Chloride 93 mmol/L (98-107) L 04/16/18 06:20 Carbon Dioxide 25 mmol/L (22-30) 04/16/18 06:20 Anion Gap 15 (10-20) 04/16/18 06:20 BUN 8 mg/dl (7-17) 04/16/18 06:20 Creatinine 0.4 mg/dl (0.7-1.2) L 04/16/18 06:20 Est GFR ( Amer) > 60 04/16/18 06:20 Est GFR (Non-Af Amer) > 60 04/16/18 06:20 POC Glucose (mg/dL) 275 mg/dL (65-110) H 04/16/18 11:28 Random Glucose 210 mg/dL (65-105) H 04/16/18 06:20 Calcium 8.6 mg/dL (8.4-10.2) 04/16/18 06:20 Magnesium 1.8 MG/DL (1.6-2.3) 04/15/18 20:47 Total Bilirubin 0.3 mg/dl (0.2-1.3) 04/15/18 20:47 AST 13 U/L (14-36) L 04/15/18 20:47 ALT 19 U/L (9-52) 04/15/18 20:47 Alkaline Phosphatase 38 U/L (38-126) 04/15/18 20:47 Total Protein 7.0 G/DL (6.3-8.2) 04/15/18 20:47 Albumin 3.8 g/dL (3.5-5.0) 04/15/18 20:47 Globulin 3.1 gm/dL (2.2-3.9) 04/15/18 20:47 Albumin/Globulin Ratio 1.2 (1.0-2.1) 04/15/18 20:47 Beta HCG, Quant 56786.00 mIU/mL 04/15/18 20:47 Urine Color Yellow (YELLOW) 04/15/18 20:46 Urine Clarity Slighty-cloudy (Clear) 04/15/18 20:46 Urine pH 6.0 (5.0-8.0) 04/15/18 20:46 Ur Specific [place] 1.014 (1.003-1.030) 04/15/18 20:46 Urine Protein Negative mg/dL (NEGATIVE) 04/15/18 20:46 Urine Glucose (UA) >=500 mg/dL (Normal) 04/15/18 20:46 Urine Ketones Negative mg/dL (NEGATIVE) 04/15/18 20:46 Urine Blood Negative (NEGATIVE) 04/15/18 20:46 Urine Nitrate Negative (NEGATIVE) 04/15/18 20:46 Urine Bilirubin Negative (NEGATIVE) 04/15/18 20:46 Urine Urobilinogen 0.2-1.0 mg/dL (0.2-1.0) 04/15/18 20:46 Ur Leukocyte Esterase Neg [place]/uL (Negative) 04/15/18 20:46 Urine RBC (Auto) 1 /hpf (0-3) 04/15/18 20:46 Urine Microscopic WBC 1 /hpf (0-5) 04/15/18 20:46 Ur Squamous Epith Cells 2 /hpf (0-5) 04/15/18 20:46 - Hospital Course Hospital Course: 27 y/o female 14 weeks with recent admission for DKA and for hyperemesis gravidarum, who came in because of persistent hypoglycemia. 1) Hypoglycemia in DM1 -- likely due to poor PO intake - resume Levemir however , will decrease dose to 10 units BID - started Glucerna -Q4H accucheck 2) Hyperemesis gravidarum -- still present, but improved from before -Advanced diet to Consistent CHO diet -Zofran and Reglan IV PRN for n/v - d/c home on Doxylamine/Pyridoxine for nausea (3) DVT prophylaxis Status: Acute SCD Discharge Exam - Head Exam Head Exam: ATRAUMATIC, NORMAL INSPECTION, NORMOCEPHALIC - Eye Exam Eye Exam: EOMI, Normal appearance, PERRL Pupil Exam: NORMAL ACCOMODATION - ENT Exam ENT Exam: Mucous Membranes Moist, Normal External Ear Exam - Neck Exam Neck exam: Full Rom - Respiratory Exam Respiratory Exam: NORMAL BREATHING PATTERN. absent: Respiratory Distress - Cardiovascular Exam Cardiovascular Exam: REGULAR RHYTHM, +S1, +S2 - GI/Abdominal Exam GI & Abdominal Exam: Normal Bowel Sounds, Soft. absent: Tenderness - Extremities Exam Extremities exam: full ROM, normal capillary refill - Back Exam Back exam: FULL ROM. absent: CVA tenderness (L), CVA tenderness (R) - Neurological Exam Neurological exam: Alert, CN II-XII Intact, Oriented x3, Reflexes Normal - Psychiatric Exam Psychiatric exam: Normal Affect, Normal Mood - Skin Skin Exam: Dry, Normal Color, Warm Discharge Plan - Discharge Medications Prescriptions: Doxylamine/Pyridoxine HCl (B6) [Nelson Mensah 10-10 mg Tablet] 1 each PO TID #60 tablet.dr - Follow Up Plan Condition: IMPROVED Disposition: HOME/ ROUTINE Additional Instructions: appt at the [facility] jonn appt FP clinic in 1 wk Referrals: [facility] [Outside] [facility] [Outside]
[2018-04-16] MEDS ORDERED: DiphenhydrAMINE 50 mg/ml Inj IVP SCH (17:00)
== END 2018-04-16 15:55 | disposition home or self-care (01) ==
LOC: H.ER 20:18 → H.ERHOLD 22:22 → INTOOBSV 22:22 → H.TEL 04-16 00:09
PROVIDERS: ADMIT Internal Medicine; ATTEND Internal Medicine
DX: O21.0 Mild hyperemesis gravidarum (principal); O24.012 Pre-existing type 1 diabetes mellitus, in pregnancy, second trimester; E10.649 Type 1 diabetes mellitus with hypoglycemia without coma; O99.282 Endocrine, nutritional and metabolic diseases complicating pregnancy, second trimester; Z3A.14 14 weeks gestation of pregnancy; E78.5 Hyperlipidemia, unspecified; E78.00 Pure hypercholesterolemia, unspecified; Z79.4 Long term (current) use of insulin
CPT/HCPCS: 36415; 80048; 80053; 81003; 81025; 82948; 83735; 84702; 85025; 93005; 96374; 96375; 96376; 99285; G0378; J1200; J2405; J2765; J7042

== ENCOUNTER 2018-04-17 21:38 | Observation (INO) | payer MEDICAID ==
[2018-04-17 21:39] VITALS: BMI 19.5
[2018-04-17] MEDS ORDERED: Sodium Chloride 0.9% 1,000 ML IV STA (22:47)
[2018-04-17] MEDS ORDERED: DiphenhydrAMINE 50 mg/ml Inj IVP STA (22:47)
[2018-04-18 00:07] LABS: BASO % 0.5 % (0.0-2.0); EOS # 0.1 K/uL (0.0-0.7); EOS % 0.6 % (0.0-4.0); HEMOGLOBIN 10.8 g/dL (12.0-16.0); LYMPH # 2.2 K/uL (1.0-4.3); LYMPH % 23.3 % (20.0-40.0); MEAN CELL VOLUME 91.3 fl (81.0-99.0); MEAN CORPUSCULAR HEMOGLOBIN 30.3 pg (27.0-31.0); MEAN CORPUSCULAR HGB CONC 33.1 g/dL (33.0-37.0); MEAN PLATELET VOLUME 8.6 fl (7.2-11.7); MONO # 0.9 K/uL (0.0-0.8); MONO % 9.4 % (0.0-10.0); NEUT # 6.3 K/uL (1.8-7.0); NEUT % 66.2 % (50.0-75.0); NRBC % 0.1 % (0.0-0.0); RBC 3.58 Mil/uL (3.80-5.20); RED CELL DISTRIBUTION WIDTH 14.4 % (11.5-14.5); WHITE BLOOD COUNT 9.5 K/uL (4.8-10.8)
[2018-04-18 00:19] LABS: ALB/GLOB RATIO 1.1 (1.0-2.1); ALBUMIN 4.5 g/dL (3.5-5.0); ALT/SGPT 16 U/L (9-52); AST/SGOT 25 U/L (14-36); BLOOD UREA NITROGEN 10 mg/dl (7-17); CALCIUM 9.6 mg/dL (8.4-10.2); GFR AFRICAN-AMERICAN > 60; GFR NON-AFRICAN AMERICAN > 60
--- NOTE | 2018-04-18 01:04 | ED PDOC ---
HPI: General Adult Time Seen by Provider: 04/17/18 22:10 Chief Complaint (Nursing): Weakness/Neurological Deficit Chief Complaint (Provider): Weakness/Neurological Deficit History Per: Patient, Family (mother) History/Exam Limitations: no limitations Onset/Duration Of Symptoms: Days (x3) Current Symptoms Are (Timing): Still Present Additional Complaint(s): 27 y/o 12 week female with a PMHx of diabetes (type II) presenting for evaluation of difficulty speaking and opening her mouth. Patient was seen and evaluated for similar on Tuesday and admitted for hyperemesis and uncontrolled blood sugars. As per mother, patient was kept overnight and discharged the next day. She states the patient symptoms returned and she had difficulty opening her mouth and speaking. She also states the patient has been dry heaving and vomiting. Otherwise states the patients sugars have been well with 127 1 hour prior to arrival and 75 prior to that. Patient denies any URI symptoms, fever, chest pain, shortness of breath, abdominal pain, vaginal bleeding, or urinary symptoms. Past Medical History Reviewed: Historical Data, Nursing Documentation, Vital Signs Vital Signs: Last Vital Signs Temp 97.6 F 04/18/18 04:27 Pulse 95 H 04/18/18 04:27 Resp 20 04/18/18 04:27 BP 117/76 04/18/18 04:27 Pulse Ox 99 04/18/18 04:27 - Medical History PMH: Diabetes (type I), Hypercholesterolemia, Hyperlipidemia Denies: HIV, Chronic Kidney Disease - Surgical History Surgical History: No Surg Hx - Family History Family History: States: Unknown Family Hx - Social History Current smoker - smoking cessation education provided: No Alcohol: None Drugs: Denies - Home Medications Home Medications: Ambulatory Orders Medication Instructions Recorded Multivit/Folic Acid/I 1 tab PO DAILY 04/15/18 [] Doxylamine/Pyridoxine HCl (B6) 1 each PO TID #60 tablet. 04/16/18 [Nelson Mensah 10-10 mg Tablet] Insulin Aspart, Recombinant 4 unit SQ TID #0 04/16/18 [Novolog] Insulin Detemir [Levemir] 10 unit SQ BID #0 04/16/18 - Allergies Allergies/Adverse Reactions: Allergies Allergy/AdvReac Type Severity Reaction Status Date / Time No Known Allergies Allergy Verified 04/17/18 21:58 Review of Systems ROS Statement: Except As Marked, All Systems Reviewed And Found Negative Constitutional: Negative for: Fever Cardiovascular: Negative for: Chest Pain Respiratory: Negative for: Cough, Shortness of Breath Gastrointestinal: Negative for: Abdominal Pain Genitourinary Female: Negative for: Dysuria, Frequency, Incontinence, Vaginal Bleeding Neurological: Positive for: Other (difficulty speaking/opening mouth) Physical Exam - Reviewed Nursing Documentation Reviewed: Yes Vital Signs Reviewed: Yes - Physical Exam Comments: GENERAL APPEARANCE: Patient is awake, alert, oriented x 3, in mild distress, unable to open mouth, actively shaking her hands. SKIN: Warm, dry; (-) cyanosis. EYES: (-) conjunctival pallor, (-) scleral icterus. ENMT: Mucous membranes moist. NECK: (-) tenderness, (-) stiffness, (-) lymphadenopathy. CHEST AND RESPIRATORY: (-) rales, (-) rhonchi, (-) wheezes; breath sounds equal bilaterally. HEART AND CARDIOVASCULAR: (-) irregularity; (-) murmur, (-) gallop. ABDOMEN AND GI: (-) distention. Bowel sounds active; (-) tenderness. (-) guarding, (-) rebound, (-) palpable masses, (-) CVA tenderness. EXTREMITIES: (-) deformity, (-) edema, (+) distal pulses. NEURO AND PSYCH: Mental status as above; (-) focal findings. - Laboratory Results Result Diagrams: 04/17/18 23:35 04/17/18 23:35 - ECG O2 Sat by Pulse Oximetry: 96 (RA) Pulse Ox Interpretation: Normal Medical Decision Making Medical Decision Making: Plan: -Beta-HCG -CMP -Drug screen -Urine dipstick -CBC -Glucose, POC -Benadryl 50mg IVP -1LNS -Reglan 10mg IVP -IV insertion -Reevaluation Patient appears to have possible dystonia. Labs reviewed. On re-evaluation, patient is sleeping comfortably with improvement of her symptoms. Considering that the patient has returned to the ER with continued symptoms, plan will be for inpt obs. Case d/w Dr. Chan, agrees with plan for observation. Crisis and psych consult ordered. ----- Scribe Attestation: Documented by Dick Maria, acting as a scribe for Talia Miranda PA-C. Provider Scribe Attestation: All medical record entries made by the Scribe were at my direction and personally dictated by me. I have reviewed the chart and agree that the record accurately reflects my personal performance of the history, physical exam, medical decision making, and the department course for this patient. I have also personally directed, reviewed, and agree with the discharge instructions and disposition. 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
--- NOTE | 2018-04-18 01:54 | CP.PCM.HP ---
History of Present Illness - History of Present Illness History of Present Illness: PMD: None Chief Complaint: Difficulty to open mouth The Patient was seen and examined in the ED HPI: The hx was obtained from the patient and after review of the medical records. This is a 27 years old female with hx of IDDM, is 14weeks and was recently admitted om multiple occasions fro Hyperemesis Gravidarum. her last admission was on 04/15/18 when she came with difficulty to open the mouth, to swallow, to chew. She was discharged on 04/16/18. She returns to the ED on 04/17/18 with the same complaint of having difficulty to chew, to swallow, to talk with throat pain. She also had dry and some heaving. No facial nor extremity weakness, fever, abdominal pains, diarrhea nor dysuria. The symptoms were relieved after Benadryl was given IV in the ED. PMH: Diabetes (type I), HLD, Hyperemesis gravidarum PSH: No surgical Hx SH: No illegal drug use; NO Alcohol, Never smoked FH: State: No known family hx Allergies: NKDA Medication: Reviewed Present on Admission - Present on Admission Any Indicators Present on Admission: Yes History of DVT/PE: No History of Uncontrolled Diabetes: Yes Urinary Catheter: No Decubitus Ulcer Present: No Review of Systems - Constitutional Constitutional: Headache. absent: Anorexia, Chills, Fever - EENT Eyes: Requires Corrective Lenses. absent: Blurred Vision, Diplopia, Photophobia Ears: absent: Decreased Hearing, Ear Discharge, Tinnitus Nose/Mouth/Throat: Dysphagia. absent: Epistaxis, Nasal Congestion Additional comments: Throat pain, Difficulty to chew and to swallow - Cardiovascular Cardiovascular: absent: Chest Pain, Dyspnea, Edema - Respiratory Respiratory: absent: Cough, Dyspnea, Wheezing, Stridor - Gastrointestinal Gastrointestinal: Nausea, Vomiting. absent: Abdominal Pain, Constipation, Diarrhea - Genitourinary Genitourinary: absent: Dysuria, Flank Pain - Musculoskeletal Musculoskeletal: absent: Back Pain, Joint Swelling, Limited Range of Motion - Integumentary Integumentary: absent: Pruritus, Rash, Skin Ulcer, Sores, Striae, Swelling - Neurological Neurological: absent: Confusion, Dizziness, Focal Weakness, Headaches, Weakness - Psychiatric Psychiatric: absent: Anxiety, Depression, Panic Attacks - Endocrine Endocrine: absent: Palpitations, Polydipsia, Polyphagia, Polyuria - Hematologic/Lymphatic Hematologic: absent: Easy Bleeding, Easy Bruising Past Patient History - Infectious Disease Hx of Infectious Diseases: None - Tetanus Immunizations Tetanus Immunization: Unknown - Past Medical History & Family History Past Medical History?: Yes - Past Social History Smoking Status: Never Smoked Chewing Tobacco Use: No Cigar Use: No Alcohol: None Drugs: Denies Home Situation {Lives}: With Family - CARDIAC Hx Hypercholesterolemia: Yes - PULMONARY Hx Respiratory Disorders: No - NEUROLOGICAL Hx Neurological Disorder: No - HEENT Hx HEENT Problems: No - RENAL Hx Chronic Kidney Disease: No - ENDOCRINE/METABOLIC Hx Endocrine Disorders: Yes Hx Diabetes Mellitus Type 2: Yes - HEMATOLOGICAL/ONCOLOGICAL Hx Blood Disorders: No Hx Human Immunodeficiency Virus (HIV): No - INTEGUMENTARY Hx Dermatological Problems: No - MUSCULOSKELETAL/RHEUMATOLOGICAL Hx Musculoskeletal Disorders: No Hx Falls: No - GASTROINTESTINAL Hx Gastrointestinal Disorders: Yes Hx Vomiting: Yes - GENITOURINARY/GYNECOLOGICAL Hx Genitourinary Disorders: No - PSYCHIATRIC Hx Psychophysiologic Disorder: No Hx Substance Use: No - SURGICAL HISTORY Hx Surgeries: Yes Hx Section: Yes Other/Comment: Tracheostomy. has infected absess in mouth which caused sepsis and intubation - ANESTHESIA Hx Anesthesia: Yes Hx Anesthesia Reactions: No Hx Malignant Hyperthermia: No Meds Allergies/Adverse Reactions: Allergies Allergy/AdvReac Type Severity Reaction Status Date / Time No Known Allergies Allergy Verified 04/17/18 21:58 Physical Exam - Constitutional Appears: No Acute Distress - Head Exam Head Exam: ATRAUMATIC, NORMAL INSPECTION, NORMOCEPHALIC - Eye Exam Eye Exam: EOMI, Normal appearance Pupil Exam: NORMAL ACCOMODATION, PERRL - ENT Exam ENT Exam: Mucous Membranes Moist, Normal Exam, Normal External Ear Exam - Neck Exam Neck exam: Positive for: Full Rom, Normal Inspection. Negative for: Lymphadenopathy, Tenderness - Respiratory Exam Respiratory Exam: Clear to Auscultation Bilateral. absent: Rales, Rhonchi, Wheezes - Cardiovascular Exam Cardiovascular Exam: REGULAR RHYTHM, RRR, +S1, +S2. absent: Gallop - GI/Abdominal Exam GI & Abdominal Exam: Normal Bowel Sounds, Soft. absent: Mass, Organomegaly, Tenderness - Rectal Exam Rectal Exam: Deferred - Extremities Exam Extremities exam: Positive for: full ROM, normal inspection. Negative for: calf tenderness, joint swelling, pedal edema - Back Exam Back exam: NORMAL INSPECTION. absent: CVA tenderness (L), CVA tenderness (R) - Neurological Exam Neurological exam: Alert, CN II-XII Intact, Oriented x3, Reflexes Normal - Psychiatric Exam Psychiatric exam: Normal Affect, Normal Mood - Skin Skin Exam: Dry, Intact, Normal Color, Warm Results - Vital Signs Recent Vital Signs: Last Vital Signs Temp 98.4 F 04/17/18 21:58 Pulse 106 H 04/17/18 21:58 Resp 20 04/17/18 21:58 BP 104/68 04/17/18 21:58 Pulse Ox 96 04/18/18 01:38 - Labs Result Diagrams: 04/17/18 23:35 04/17/18 23:35 Labs: Laboratory Results - last 24 hr 04/17/18 04/17/18 04/17/18 22:08 23:35 23:35 WBC 9.5 RBC 3.58 L Hgb 10.8 L Hct 32.7 L MCV 91.3 MCH 30.3 MCHC 33.1 RDW 14.4 Plt Count 453 H MPV 8.6 Neut % (Auto) 66.2 Lymph % (Auto) 23.3 [place] % (Auto) 9.4 Eos % (Auto) 0.6 Baso % (Auto) 0.5 Neut # (Auto) 6.3 Lymph # (Auto) 2.2 [place]uel # (Auto) 0.9 H Eos # (Auto) 0.1 Baso # (Auto) 0.0 Sodium 131 L Potassium 4.6 Chloride 93 L Carbon Dioxide 23 Anion Gap 20 BUN 10 Creatinine 0.3 L Est GFR ( Amer) > 60 Est GFR (Non-Af Amer) > 60 POC Glucose (mg/dL) 258 H Random Glucose 222 H Calcium 9.6 Total Bilirubin 0.7 AST 25 ALT 16 Alkaline Phosphatase 44 Total Protein 8.4 H Albumin 4.5 Globulin 3.9 Albumin/Globulin Ratio 1.1 Beta HCG, Quant 31112.00 Assessment & Plan - Assessment and Plan (Free Text) Assessment: #. Dystonic Rection #. Hyperemesid Gravidarum #. IDDM with hyperglycemia Plan: 27 years old female with hx of IDDM, is 14weeks and was recently admitted om multiple occasions fro Hyperemesis Gravidarum. her last admission was on 04/15/18 when she came with difficulty to open the mouth, to swallow, to chew. She was discharged on 04/16/18. She returns to the ED on 04/17/18 with the same complaint of having difficulty to chew, to swallow, to talk with throat pain. #. Dystonic Rection. This could be a continuation of the episode that begun on . The cause being one of the antiemetic medication. - Place patient on Observation - Continue Benadryl - Discharge with continued Benadryl for a few days #. Hyperemesid Gravidarum - Discontinue use of Compazine and infrequent use of Reglan - Benadryl and Vistaryl #. IDDM with hyperglycemia - IV fluids - Insulin Lispro sliding scale according to accucheck - Levemir DVT prophylaxis: low risk, early ambulation #. Code Status: Full - Date & Time Date: 04/18/18 Time: 01:54
[2018-04-18] MEDS: DiphenhydrAMINE 50 mg/ml Inj IVP SCH ×4 (04:31→21:38)
[2018-04-18] MEDS: Sodium Chloride 0.9% 1,000 ML IV SCH ×3 (04:32→22:45)
[2018-04-18] MEDS: Prenatal Multivit/Folic Acid/Iron Tab PO SCH (10:22)
[2018-04-18] MEDS: Insulin Lispro (humaLOG) 100 Units/ml Inj SC SCH ×4 (10:22→21:38)
[2018-04-18 11:54] LABS: BLOOD UREA NITROGEN 8 mg/dl (7-17); CALCIUM 8.3 mg/dL (8.4-10.2); GFR AFRICAN-AMERICAN > 60; GFR NON-AFRICAN AMERICAN > 60
[2018-04-18] MEDS ORDERED: Insulin Detemir 100 Units/ml Inj SC SCH (22:00)
[2018-04-19] MEDS ORDERED: Alum-Mag Hydrox-Simethicone Susp (30 mL) PO ONE (00:36)
[2018-04-19] MEDS: DiphenhydrAMINE 50 mg/ml Inj IVP SCH ×2 (04:02→10:19)
--- NOTE | 2018-04-19 06:56 | CP.PCM.CON ---
History of Present Illness - History of Present Illness History of Present Illness: Psychiatry consult note CC: "I couldn't move my mouth before." HPI: 27 years old female with hx of IDDM, is 14weeks and was recently admitted om multiple occasions fro Hyperemesis Gravidarum. her last admission was on 04/15/18 when she came with difficulty to open the mouth, to swallow, to chew. She was discharged on 04/16/18. She returns to the ED on 04/17/18 with the same complaint of having difficulty to chew, to swallow, to talk with throat pain. She also had dry and some heaving. No facial nor extremity weakness , fever, abdominal pains, diarrhea nor dysuria. The symptoms were relieved after Benadryl was given IV in the ED. She denies acute depression/anxiety/AH/VH /paranoia/delusions/SI/HI. 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 -Recommend to switch from Benadryl to Cogentin 0.5 mg PO Q12 hrs x 3 days if patient is able to tolerate PO medication; patient may need more than 3 days of Cogentin if the dystonic reaction returns and should follow-up with her primary care provider within one week of discharge -No acute inpatient psychiatric admission indicated at this time. Past Patient History - Infectious Disease Hx of Infectious Diseases: None - Tetanus Immunizations Tetanus Immunization: Unknown - Past Medical History & Family History Past Medical History?: Yes - Past Social History Alcohol: None Drugs: Denies - CARDIAC Hx Hypercholesterolemia: Yes - PULMONARY Hx Respiratory Disorders: No - NEUROLOGICAL Hx Neurological Disorder: No - HEENT Hx HEENT Problems: No - RENAL Hx Chronic Kidney Disease: No - ENDOCRINE/METABOLIC Hx Endocrine Disorders: Yes Hx Diabetes Mellitus Type 2: Yes - HEMATOLOGICAL/ONCOLOGICAL Hx Human Immunodeficiency Virus (HIV): No - INTEGUMENTARY Hx Dermatological Problems: No - MUSCULOSKELETAL/RHEUMATOLOGICAL Hx Musculoskeletal Disorders: No Hx Falls: No - GASTROINTESTINAL Hx Gastrointestinal Disorders: Yes Hx Vomiting: Yes - GENITOURINARY/GYNECOLOGICAL Hx Genitourinary Disorders: No - PSYCHIATRIC Hx Psychophysiologic Disorder: No Hx Substance Use: No - SURGICAL HISTORY Hx Surgeries: Yes Hx Section: Yes Other/Comment: Tracheostomy. has infected absess in mouth which caused sepsis and intubation - ANESTHESIA Hx Anesthesia: Yes Hx Anesthesia Reactions: No Hx Malignant Hyperthermia: No Meds Allergies/Adverse Reactions: Allergies Allergy/AdvReac Type Severity Reaction Status Date / Time No Known Allergies Allergy Verified 04/17/18 21:58 - Medications Medications: Current Medications Diphenhydramine HCl (Benadryl) 25 mg IVP Q6 [facility] Last Admin: 04/19/18 04:02 Dose: 25 mg Docusate Sodium (Colace) 100 mg PO BID [facility] Last Admin: 04/18/18 17:20 Dose: 100 mg Insulin Detemir (Levemir) 8 units SC HS [facility] Last Admin: 04/18/18 21:37 Dose: 8 u Insulin Human Lispro (Humalog) 0 units SC ACHS [facility] PRN Reason: Protocol Last Admin: 04/18/18 21:38 Dose: Not Given Ondansetron HCl (Zofran Inj) 4 mg IVP Q6 PRN PRN Reason: Nausea/Vomiting Last Admin: 04/19/18 00:25 Dose: 4 mg Multivit/Folic Acid/Iron () 1 tab PO DAILY [facility] Last Admin: 04/18/18 10:22 Dose: 1 tab Results - Vital Signs Recent Vital Signs: Last Vital Signs Temp 98.2 F 04/19/18 00:46 Pulse 93 H 04/19/18 00:46 Resp 20 04/19/18 00:46 BP 120/77 04/19/18 00:46 Pulse Ox 99 04/19/18 00:46 - Labs Result Diagrams: 04/17/18 23:35 04/18/18 11:39 Labs: Laboratory Results - last 24 hr 04/18/18 04/18/18 04/18/18 07:04 11:39 12:22 Sodium 129 L Potassium 4.4 Chloride 96 L Carbon Dioxide 23 Anion Gap 14 BUN 8 Creatinine 0.3 L Est GFR ( Amer) > 60 Est GFR (Non-Af Amer) > 60 POC Glucose (mg/dL) 198 H 282 H Random Glucose 300 H Calcium 8.3 L 04/18/18 04/18/18 04/19/18 17:19 21:34 05:36 Sodium Potassium Chloride Carbon Dioxide Anion Gap BUN Creatinine Est GFR ( Amer) Est GFR (Non-Af Amer) POC Glucose (mg/dL) 322 H 274 H 170 H Random Glucose Calcium
[2018-04-19 08:13] VITALS: BP 91/60; PULSE 89; RESP 18; TEMP 97.9; O2SAT 98
[2018-04-19] MEDS: Prenatal Multivit/Folic Acid/Iron Tab PO SCH (08:59)
[2018-04-19] MEDS: Insulin Lispro (humaLOG) 100 Units/ml Inj SC SCH ×2 (08:59→12:32)
[2018-04-19 10:57] LABS: BARBITURATES, UR NEGATIVE (NEGATIVE); BENZODIAZEPINES, UR NEGATIVE (NEGATIVE); OPIATES, UR NEGATIVE (NEGATIVE); PHENCYCLIDINE, UR NEGATIVE (NEGATIVE)
--- NOTE | 2018-04-19 11:22 | CP.PCM.DIS ---
Provider - Provider Date of Admission: 04/18/18 01:31 Attending physician: Osman Chan Consults: Dr Champagne Time Spent in preparation of Discharge (in minutes): 25 Diagnosis - Discharge Diagnosis (1) Dystonia Status: Acute Comment: continue Cogentin 0.5mg PO q 12hrs for difficulty swallowing (2) Hyperemesis gravidarum Status: Acute Comment: follow up in [facility] in a week (3) DM type 1 (diabetes mellitus, type 1) Status: Chronic Comment: Levemir 8 units SC HS. follow up with PCP in 2 weeks Hospital Course - Lab Results Lab Results: Most Recent Lab Values WBC 9.5 K/uL (4.8-10.8) 04/17/18 23:35 RBC 3.58 Mil/uL (3.80-5.20) L 04/17/18 23:35 Hgb 10.8 g/dL (12.0-16.0) L 04/17/18 23:35 Hct 32.7 % (34.0-47.0) L 04/17/18 23:35 MCV 91.3 fl (81.0-99.0) 04/17/18 23:35 MCH 30.3 pg (27.0-31.0) 04/17/18 23:35 MCHC 33.1 g/dL (33.0-37.0) 04/17/18 23:35 RDW 14.4 % (11.5-14.5) 04/17/18 23:35 Plt Count 453 K/uL (130-400) H 04/17/18 23:35 MPV 8.6 fl (7.2-11.7) 04/17/18 23:35 Neut % (Auto) 66.2 % (50.0-75.0) 04/17/18 23:35 Lymph % (Auto) 23.3 % (20.0-40.0) 04/17/18 23:35 [place] % (Auto) 9.4 % (0.0-10.0) 04/17/18 23:35 Eos % (Auto) 0.6 % (0.0-4.0) 04/17/18 23:35 Baso % (Auto) 0.5 % (0.0-2.0) 04/17/18 23:35 Neut # (Auto) 6.3 K/uL (1.8-7.0) 04/17/18 23:35 Lymph # (Auto) 2.2 K/uL (1.0-4.3) 04/17/18 23:35 [place] # (Auto) 0.9 K/uL (0.0-0.8) H 04/17/18 23:35 Eos # (Auto) 0.1 K/uL (0.0-0.7) 04/17/18 23:35 Baso # (Auto) 0.0 K/uL (0.0-0.2) 04/17/18 23:35 Sodium 129 mmol/l (132-148) L 04/18/18 11:39 Potassium 4.4 MMOL/L (3.6-5.0) 04/18/18 11:39 Chloride 96 mmol/L (98-107) L 04/18/18 11:39 Carbon Dioxide 23 mmol/L (22-30) 04/18/18 11:39 Anion Gap 14 (10-20) 04/18/18 11:39 BUN 8 mg/dl (7-17) 04/18/18 11:39 Creatinine 0.3 mg/dl (0.7-1.2) L 04/18/18 11:39 Est GFR ( Amer) > 60 04/18/18 11:39 Est GFR (Non-Af Amer) > 60 04/18/18 11:39 POC Glucose (mg/dL) 264 mg/dL (65-110) H 04/19/18 10:53 Random Glucose 300 mg/dL (65-105) H 04/18/18 11:39 Calcium 8.3 mg/dL (8.4-10.2) L 04/18/18 11:39 Total Bilirubin 0.7 mg/dl (0.2-1.3) 04/17/18 23:35 AST 25 U/L (14-36) 04/17/18 23:35 ALT 16 U/L (9-52) 04/17/18 23:35 Alkaline Phosphatase 44 U/L (38-126) 04/17/18 23:35 Total Protein 8.4 G/DL (6.3-8.2) H 04/17/18 23:35 Albumin 4.5 g/dL (3.5-5.0) 04/17/18 23:35 Globulin 3.9 gm/dL (2.2-3.9) 04/17/18 23:35 Albumin/Globulin Ratio 1.1 (1.0-2.1) 04/17/18 23:35 Beta HCG, Quant 41820.00 mIU/mL 04/17/18 23:35 Urine Opiates Screen Negative (NEGATIVE) 04/19/18 10:29 Urine Methadone Screen Negative (NEGATIVE) 04/19/18 10:29 Ur Barbiturates Screen Negative (NEGATIVE) 04/19/18 10:29 Ur Phencyclidine Scrn Negative (NEGATIVE) 04/19/18 10:29 Ur Amphetamines Screen Negative (NEGATIVE) 04/19/18 10:29 U Benzodiazepines Scrn Negative (NEGATIVE) 04/19/18 10:29 U Oth Cocaine Metabols Negative (NEGATIVE) 04/19/18 10:29 U Cannabinoids Screen Negative (NEGATIVE) 04/19/18 10:29 - Hospital Course Hospital Course: 27 yo female with DM1 and 14 weeks admitted again because of Hyperemesis Gravidarum with associated difficulty chewing and swallowing. Condition probably secondary to extrapyramidal effect of the anti-emetics. She was given IV Benadryl and hydrated intravenously. Her condition improved after staying overnight. She was advised to follow up in the [facility] and discharged in stable condition. Discharge Exam - Head Exam Head Exam: ATRAUMATIC, NORMAL INSPECTION, NORMOCEPHALIC - Eye Exam Eye Exam: Normal appearance - ENT Exam ENT Exam: Mucous Membranes Moist - Respiratory Exam Respiratory Exam: NORMAL BREATHING PATTERN. absent: Rales, Rhonchi, Wheezes, Respiratory Distress - Cardiovascular Exam Cardiovascular Exam: REGULAR RHYTHM, +S1, +S2 - GI/Abdominal Exam GI & Abdominal Exam: Soft. absent: Tenderness - Rectal Exam Rectal Exam: Deferred - Back Exam Back exam: NORMAL INSPECTION - Neurological Exam Neurological exam: Alert, Oriented x3 - Psychiatric Exam Psychiatric exam: Normal Affect - Skin Skin Exam: Dry, Intact Discharge Plan - Follow Up Plan Condition: FAIR Disposition: HOME/ ROUTINE
== END 2018-04-19 13:42 | disposition home or self-care (01) ==
LOC: H.ER 21:38 → H.ERHOLD 04-18 01:31 → INTOOBSV 04-18 01:31 → H.MEDSURG1 04-18 04:04
PROVIDERS: ADMIT Internal Medicine; ATTEND Internal Medicine
DX: G24.09 Other drug induced dystonia (principal); O99.282 Endocrine, nutritional and metabolic diseases complicating pregnancy, second trimester; Z3A.14 14 weeks gestation of pregnancy; E78.5 Hyperlipidemia, unspecified; Z79.4 Long term (current) use of insulin; E78.00 Pure hypercholesterolemia, unspecified; T45.0X5A Adverse effect of antiallergic and antiemetic drugs, initial encounter; O21.0 Mild hyperemesis gravidarum; E10.65 Type 1 diabetes mellitus with hyperglycemia
CPT/HCPCS: 36415; 80048; 80053; 80324; 80345; 80346; 80349; 80353; 80358; 80361; 82948; 83992; 84702; 85025; 96374; 96375; 96376; 99285; G0378; J1200; J2405; J2765; J7030